=== PATIENT | male | born 1955 | race Caucasian/White ===

== ENCOUNTER → 2017-12-17 | Outpatient (CLI) | payer BC ==
[2017-12-17 15:49] LABS: Bilirubin, Delta 0.2 mg/dL (0.0-0.2); Bilirubin,Unconjugated 0.6 mg/dL (0.0-1.1); Total Bilirubin 0.8 mg/dL (0.2-1.3)
[2017-12-17 16:27] LABS: Phosphorus 3.9 mg/dL (2.5-4.5)
== END | disposition home or self-care (01) ==
LOC: LABWHC1 15:02
PROVIDERS: ATTEND Internal Medicine
DX: R74.8 Abnormal levels of other serum enzymes (principal)
CPT/HCPCS: 36415; 82248; 82550; 84075; 84100; 84460

== ENCOUNTER → 2018-02-09 | Outpatient (CLI) | payer BC | END | disposition home or self-care (01) | LOC: LABWHC1 11:16 | PROVIDERS: ATTEND Urology | DX: N40.1 Benign prostatic hyperplasia with lower urinary tract symptoms (principal) | CPT/HCPCS: 36415; 84153 ==

== ENCOUNTER → 2019-02-21 | Outpatient (CLI) | payer BC | END | disposition home or self-care (01) | LOC: LABWHC1 16:09 | PROVIDERS: ATTEND Urology | DX: N40.1 Benign prostatic hyperplasia with lower urinary tract symptoms (principal) | CPT/HCPCS: 36415; 84153; 84154 ==

== ENCOUNTER → 2020-02-21 | Outpatient (CLI) | payer MEDICARE, BC | END | disposition home or self-care (01) | LOC: LABWHC1 10:55 | PROVIDERS: ATTEND Urology | DX: N40.1 Benign prostatic hyperplasia with lower urinary tract symptoms (principal) | CPT/HCPCS: 36415; 84153; 84154 ==

== ENCOUNTER → 2020-05-22 | Outpatient (CLI) | payer MEDICARE ==
[2020-05-22 12:50] LABS: Basophils % (A) 1 %; Eosinophils # (A) 0.3 k/uL (0-0.7); Eosinophils % (A) 3 %; HCT 48.8 % (39.0-53.0); HGB 16.6 gm/dL (13.0-17.5); Lymphocytes # (A) 1.7 k/uL (1.0-4.8); Lymphocytes % (A) 18 %; MCH 28.9 pg (25.0-35.0); MCHC 33.9 g/dL (31.0-37.0); MCV 85.2 fL (80.0-100.0); Mean Platelet Volume 7.8; Monocytes # (A) 0.4 k/uL (0-1.0); Monocytes % (A) 4 %; Neutrophils # (A) 6.7 k/uL (1.3-7.7); Neutrophils % (A) 72 %; Platelet Count 186 k/uL (150-450); RBC 5.74 m/uL (4.30-5.90); RDW 13.9 % (11.5-15.5); WBC 9.3 k/uL (3.8-10.6)
[2020-05-22 20:45] LABS: Hemoglobin A1C 4.8 % (4.0-6.0)
[2020-05-22 22:17] LABS: African American GFR (CKD) 102.1 (60.0-200.0); Albumin 4.6 g/dL (3.80-4.90); Albumin/Globulin Ratio 2.09 (1.60-3.17); Anion Gap 5.4 mmol/L (4.00-12.00); BUN/Creat Ratio 17.78 Ratio (12.00-20.00); Calcium 9.8 mg/dL (8.7-10.3); Carbon Dioxide 29.6 mmol/L (21.6-31.8); Chol/HDL Ratio 2.88; Globulin 2.2 g/dL (1.6-3.3); Non-African American GFR(CKD) 88.1 (60.0-200.0); Potassium 4.4 mmol/L (3.5-5.5); Total Bilirubin 1.1 mg/dL (0.2-1.2); Total Protein 6.8 g/dL (6.2-8.2)
== END | disposition home or self-care (01) ==
LOC: LABWHC1 10:45
PROVIDERS: ATTEND Internal Medicine
DX: I10 Essential (primary) hypertension (principal); E78.00 Pure hypercholesterolemia, unspecified; E55.9 Vitamin D deficiency, unspecified; R63.4 Abnormal weight loss; Z79.899 Other long term (current) drug therapy
CPT/HCPCS: 36415; 80053; 80061; 82306; 83036; 84443; 85025

== ENCOUNTER 2021-03-15 14:59 | Inpatient (IN) | payer MEDICARE ==
[2021-03-15] MEDS ORDERED: SODIUM CHLORIDE 0.9% 1,000 ML IV STA (15:17)
--- NOTE | 2021-03-15 15:20 | ED ---
General Adult HPI - General Chief complaint: Neuro Symptoms/Deficit Stated complaint: Thick speech, loss of balance Poss stroke Time Seen by Provider: 03/15/21 15:17 Source: patient Mode of arrival: wheelchair Limitations: no limitations - History of Present Illness Initial comments: Dictation was produced using F[employer] dictation software. please excuse any grammatical, word or spelling errors. Chief Complaint: Patient is a 65-year-old male with past medical history of hypercholesterolemia and prostate disease presents to the emergency part of her strokelike symptoms. History of Present Illness: This 65-year-old male who is brought in by . Patient's last known normal was approximately 10:30 AM this morning. He was last normal on the way to the urologist. Patient went to the urology appointment when all of a sudden he experienced acute onset weakness. describes that they were at the local pharmacy in the parking lot. Patient wanted to going to the store however was too weak to do so. reports that patient's speech is "thick." States that he was unable to stand. Patient denies any issues at this time. reports that patient usually does not have much complaints. The ROS documented in this emergency department record has been reviewed and confirmed by me. Those systems with pertinent positive or negative responses have been documented in the HPI. All other systems are other negative and/or noncontributory. At the urologist appointment he was evaluated and was allegedly prescribed antibiotics. Patient has any constitutional symptoms. PHYSICAL EXAM: General Impression: Alert and oriented x3, not in acute distress HEENT: Normocephalic atraumatic, extra-ocular movements intact, pupils equal and reactive to light bilaterally, mucous membranes moist. Cardiovascular: Heart regular rate and rhythm Chest: Able to complete full sentences, no retractions, no tachypnea Abdomen: abdomen soft, non-tender, non-distended, no organomegaly Musculoskeletal: Pulses present and equal in all extremities, no peripheral edema Motor: no focal deficits noted Neurological: CN II-XII grossly intact, mildly aphasic, slightly slurred speech, ataxic to the left lower extremity, NIH of 3 for mild ataxia of the left lower extremity, mild aphasia and mild slurred speech. No sensory deficit. No ex tremity weakness Skin: Intact with no visualized rashes Psych: Normal affect and mood ED course: Patient is a 65-year-old male last known normal was 10:30 to 11 AM this morning. He has strokelike symptoms. Vital signs upon arrival shows him to 100.2, heart rate of 131, rest of vital signs within acceptable limits. Code stroke was paged. Patient has a NIH score of 3. Total onset was 10:30 to 11 AM this morning. Case is discussed with stroke neurologist Dr. Celeste who reports that patient is not a TPA candidate. Bedside ultrasound was performed. Fxnss-up-[id number] bladder ultrasound was performed after patient attempted urination. He is been having dribbling symptoms for the last couple days. He had a small amount of dribbled urine just prior to the ultrasound. Patient unable to urinate normally. Ultrasound shows approximately 200 mL of postvoid residual urine. CT angiography of the head and neck was discussed with Dr. Carlos. He recommends medical management at this time. Does not recommend neuro endovascular intervention. Multiple attempts were made to place Pierce catheter for urinary retention. Multiple coud sizes were attempted with no success. Silicone Pierce catheter was attempted with no success. Case discussed with Dr. Gustafson was adult probation officer for urology who is aware and will place Pierce catheter is concern that patient's clinical presentation reflects prostatitis. Patient started on Levaquin. Patient has no localizing symptoms. Vancomycin and also ordered for broad- spectrum coverage. Urinalysis was resulted showing signs of urinary tract infection. EKG interpretation: Ventricular rate 127, sinus tachycardia,. 170, QRS 86, QTC 427. No MA prolongation, no QTC prolongation, no ST or T-wave changes noted. Not EKG for comparison. Overall, this EKG is unremarkable - Related Data Home Medications Medication Instructions Recorded Confirmed Atorvastatin [Lipitor] 20 mg PO HS 03/15/21 03/15/21 Fish Oil 2500mg 1 cap PO DAILY 03/15/21 03/15/21 Losartan [Cozaar] 50 mg PO DAILY 03/15/21 03/15/21 Nitrofurantoin Monohyd/M-Cryst 100 mg PO BID 03/15/21 03/15/21 [Macrobid] Oxybutynin Chloride [Ditropan] 5 mg PO BID 03/15/21 03/15/21 Prevagen 1 cap PO DAILY 03/15/21 03/15/21 Tamsulosin [Flomax] 0.4 mg PO HS 03/15/21 03/15/21 amLODIPine [Norvasc] 5 mg PO DAILY 03/15/21 03/15/21 hydroCHLOROthiazide [Hydrodiuril] 12.5 mg PO DAILY 03/15/21 03/15/21 Allergies Allergy/AdvReac Type Severity Reaction Status Date / Time No Known Allergies Allergy Verified 03/15/21 16:19 Review of Systems ROS Statement: Those systems with pertinent positive or pertinent negative responses have been documented in the HPI. ROS Other: All systems not noted in ROS Statement are negative. Past Medical History Past Medical History: Hypertension Additional Past Medical History / Comment(s): prostate problems Additional Past Surgical History / Comment(s): prostate surgery, lithrotripsy Past Psychological History: No Psychological Hx Reported Smoking Status: Never smoker Past Alcohol Use History: None Reported Past Drug Use History: None Reported General Exam Limitations: no limitations Course Vital Signs 03/15/21 03/15/21 03/15/21 15:09 15:25 15:40 Temperature 100.2 F H Pulse Rate 131 H 130 H 133 H Respiratory 18 18 18 Rate Blood Pressure 163/88 147/78 161/94 O2 Sat by Pulse 94 L 95 94 L Oximetry 03/15/21 17:10 Temperature 102.5 F H Pulse Rate 128 H Respiratory 20 Rate Blood Pressure 138/81 O2 Sat by Pulse 94 L Oximetry Medical Decision Making - Lab Data Result diagrams: 03/15/21 15:23 03/15/21 15:23 Lab Results 03/15/21 03/15/21 03/15/21 Range/Units 15:21 15:23 15:23 WBC 11.9 H (3.8-10.6) k/uL RBC 5.21 (4.30-5.90) m/uL Hgb 15.7 (13.0-17.5) gm/dL Hct 43.4 (39.0-53.0) % MCV 83.3 (80.0-100.0) fL MCH 30.2 (25.0-35.0) pg MCHC 36.2 (31.0-37.0) g/dL RDW 14.0 (11.5-15.5) % Plt Count 159 (150-450) k/uL MPV 7.6 Neutrophils % 90 % Lymphocytes % 4 % Monocytes % 4 % Eosinophils % 0 % Basophils % 0 % Neutrophils # 10.8 H (1.3-7.7) k/uL Lymphocytes # 0.5 L (1.0-4.8) k/uL Monocytes # 0.5 (0-1.0) k/uL Eosinophils # 0.0 (0-0.7) k/uL Basophils # 0.0 (0-0.2) k/uL Hyperchromasia Slight Poikilocytosis Slight PT 11.1 (9.0-12.0) sec INR 1.1 (<1.2) APTT 24.8 (22.0-30.0) sec Sodium (137-145) mmol/L Potassium (3.5-5.1) mmol/L Chloride (98-107) mmol/L Carbon Dioxide (22-30) mmol/L Anion Gap mmol/L BUN (9-20) mg/dL Creatinine (0.66-1.25) mg/dL Est GFR (CKD-EPI)AfAm (>60 ml/min/1.73 sqM) Est GFR (CKD-EPI)NonAf (>60 ml/min/1.73 sqM) Glucose (74-99) mg/dL POC Glucose (mg/dL) 133 H (75-99) mg/dL POC Glu [employer] Generator ID Rashi, Sandra Plasma Lactic Acid Kurt (0.7-2.0) mmol/L Calcium (8.4-10.2) mg/dL Total Bilirubin (0.2-1.3) mg/dL AST (17-59) U/L ALT (4-49) U/L Alkaline Phosphatase (38-126) U/L Troponin I (0.000-0.034) ng/mL Total Protein (6.3-8.2) g/dL Albumin (3.5-5.0) g/dL Urine Color Urine Appearance (Clear) Urine pH (5.0-8.0) Ur Specific [place] (1.001-1.035) Urine Protein (Negative) Urine Glucose (UA) (Negative) Urine Ketones (Negative) Urine Blood (Negative) Urine Nitrite (Negative) Urine Bilirubin (Negative) Urine Urobilinogen (<2.0) mg/dL Ur Leukocyte Esterase (Negative) Urine RBC (0-5) /hpf Urine WBC (0-5) /hpf Ur Squamous Epith Cells (0-4) /hpf Hyaline Casts (0-2) /lpf Urine Mucus (None) /hpf Influenza Type A (PCR) (Not Detectd) Influenza Type B (PCR) (Not Detectd) RSV (PCR) (Not Detectd) SARS-CoV-2 (PCR) (Not Detectd) 03/15/21 03/15/21 03/15/21 Range/Units 15:23 15:23 15:23 WBC (3.8-10.6) k/uL RBC (4.30-5.90) m/uL Hgb (13.0-17.5) gm/dL Hct (39.0-53.0) % MCV (80.0-100.0) fL MCH (25.0-35.0) pg MCHC (31.0-37.0) g/dL RDW (11.5-15.5) % Plt Count (150-450) k/uL MPV Neutrophils % % Lymphocytes % % Monocytes % % Eosinophils % % Basophils % % Neutrophils # (1.3-7.7) k/uL Lymphocytes # (1.0-4.8) k/uL Monocytes # (0-1.0) k/uL Eosinophils # (0-0.7) k/uL Basophils # (0-0.2) k/uL Hyperchromasia Poikilocytosis PT (9.0-12.0) sec INR (<1.2) APTT (22.0-30.0) sec Sodium 134 L (137-145) mmol/L Potassium 3.9 (3.5-5.1) mmol/L Chloride 99 (98-107) mmol/L Carbon Dioxide 22 (22-30) mmol/L Anion Gap 13 mmol/L BUN 19 (9-20) mg/dL Creatinine 0.81 (0.66-1.25) mg/dL Est GFR (CKD-EPI)AfAm >90 (>60 ml/min/1.73 sqM) Est GFR (CKD-EPI)NonAf >90 (>60 ml/min/1.73 sqM) Glucose 133 H (74-99) mg/dL POC Glucose (mg/dL) (75-99) mg/dL POC Glu Gleason [employer] Generator ID Plasma Lactic Acid Kurt (0.7-2.0) mmol/L Calcium 9.2 (8.4-10.2) mg/dL Total Bilirubin 1.9 H (0.2-1.3) mg/dL AST 22 (17-59) U/L ALT 19 (4-49) U/L Alkaline Phosphatase 73 (38-126) U/L Troponin I <0.012 (0.000-0.034) ng/mL Total Protein 7.4 (6.3-8.2) g/dL Albumin 4.2 (3.5-5.0) g/dL Urine Color Yellow Urine Appearance Cloudy (Clear) Urine pH 5.5 (5.0-8.0) Ur Specific [place] >1.050 H (1.001-1.035) Urine Protein 2+ H (Negative) Urine Glucose (UA) Negative (Negative) Urine Ketones 1+ H (Negative) Urine Blood Large H (Negative) Urine Nitrite Negative (Negative) Urine Bilirubin Negative (Negative) Urine Urobilinogen <2.0 (<2.0) mg/dL Ur Leukocyte Esterase Large H (Negative) Urine RBC >182 H (0-5) /hpf Urine WBC 154 H (0-5) /hpf Ur Squamous Epith Cells 2 (0-4) /hpf Hyaline Casts 5 H (0-2) /lpf Urine Mucus Rare H (None) /hpf Influenza Type A (PCR) (Not Detectd) Influenza Type B (PCR) (Not Detectd) RSV (PCR) (Not Detectd) SARS-CoV-2 (PCR) (Not Detectd) 03/15/21 03/15/21 Range/Units 15:23 15:23 WBC (3.8-10.6) k/uL RBC (4.30-5.90) m/uL Hgb (13.0-17.5) gm/dL Hct (39.0-53.0) % MCV (80.0-100.0) fL MCH (25.0-35.0) pg MCHC (31.0-37.0) g/dL RDW (11.5-15.5) % Plt Count (150-450) k/uL MPV Neutrophils % % Lymphocytes % % Monocytes % % Eosinophils % % Basophils % % Neutrophils # (1.3-7.7) k/uL Lymphocytes # (1.0-4.8) k/uL Monocytes # (0-1.0) k/uL Eosinophils # (0-0.7) k/uL Basophils # (0-0.2) k/uL Hyperchromasia Poikilocytosis PT (9.0-12.0) sec INR (<1.2) APTT (22.0-30.0) sec Sodium (137-145) mmol/L Potassium (3.5-5.1) mmol/L Chloride (98-107) mmol/L Carbon Dioxide (22-30) mmol/L Anion Gap mmol/L BUN (9-20) mg/dL Creatinine (0.66-1.25) mg/dL Est GFR (CKD-EPI)AfAm (>60 ml/min/1.73 sqM) Est GFR (CKD-EPI)NonAf (>60 ml/min/1.73 sqM) Glucose (74-99) mg/dL POC Glucose (mg/dL) (75-99) mg/dL POC Glu Gleason [employer] Generator ID Plasma Lactic Acid Kurt 1.7 (0.7-2.0) mmol/L Calcium (8.4-10.2) mg/dL Total Bilirubin (0.2-1.3) mg/dL AST (17-59) U/L ALT (4-49) U/L Alkaline Phosphatase (38-126) U/L Troponin I (0.000-0.034) ng/mL Total Protein (6.3-8.2) g/dL Albumin (3.5-5.0) g/dL Urine Color Urine Appearance (Clear) Urine pH (5.0-8.0) Ur Specific [place] (1.001-1.035) Urine Protein (Negative) Urine Glucose (UA) (Negative) Urine Ketones (Negative) Urine Blood (Negative) Urine Nitrite (Negative) Urine Bilirubin (Negative) Urine Urobilinogen (<2.0) mg/dL Ur Leukocyte Esterase (Negative) Urine RBC (0-5) /hpf Urine WBC (0-5) /hpf Ur Squamous Epith Cells (0-4) /hpf Hyaline Casts (0-2) /lpf Urine Mucus (None) /hpf Influenza Type A (PCR) Not Detected (Not Detectd) Influenza Type B (PCR) Not Detected (Not Detectd) RSV (PCR) Not Detected (Not Detectd) SARS-CoV-2 (PCR) Not Detected (Not Detectd) Critical Care Time Critical Care Time: Yes Total Critical Care Time: 33 Disposition Clinical Impression: Cerebrovascular accident (CVA), UTI (urinary tract infection), Urinary retention Disposition: ADMITTED IP TO THIS HOSP Condition: Fair Referrals: David Agrawal DO [Primary Care Provider] - 1-2 days
[2021-03-15 15:23] LABS: Glucose,Whole Blood 133 mg/dL (75-99)
[2021-03-15 15:48] LABS: ALT 19 U/L (4-49); AST 22 U/L (17-59); African American GFR (CKD) >90 (>60 ml/min/1.73 sqM); Albumin 4.2 g/dL (3.5-5.0); Alkaline Phosphatase 73 U/L (38-126); Anion Gap 13 mmol/L; Blood Urea Nitrogen 19 mg/dL (9-20); Calcium 9.2 mg/dL (8.4-10.2); Carbon Dioxide 22 mmol/L (22-30); Chloride 99 mmol/L (98-107); Glucose 133 mg/dL (74-99); Non-African American GFR(CKD) >90 (>60 ml/min/1.73 sqM); Potassium 3.9 mmol/L (3.5-5.1); Sodium 134 mmol/L (137-145); Total Bilirubin 1.9 mg/dL (0.2-1.3); Total Protein 7.4 g/dL (6.3-8.2)
[2021-03-15 15:51] LABS: INR 1.1 (<1.2); Partial Thromboplastin Time 24.8 sec (22.0-30.0); Prothrombin Time 11.1 sec (9.0-12.0)
[2021-03-15 15:52] LABS: Basophils % (A) 0 %; Eosinophils % (A) 0 %; HCT 43.4 % (39.0-53.0); HGB 15.7 gm/dL (13.0-17.5); Hyperchromasia Slight; Lymphocytes # (A) 0.5 k/uL (1.0-4.8); Lymphocytes % (A) 4 %; MCH 30.2 pg (25.0-35.0); MCHC 36.2 g/dL (31.0-37.0); MCV 83.3 fL (80.0-100.0); Mean Platelet Volume 7.6; Monocytes # (A) 0.5 k/uL (0-1.0); Monocytes % (A) 4 %; Neutrophils # (A) 10.8 k/uL (1.3-7.7); Neutrophils % (A) 90 %; Platelet Count 159 k/uL (150-450); Poikilocytosis Slight; RBC 5.21 m/uL (4.30-5.90); WBC 11.9 k/uL (3.8-10.6)
--- NOTE | 2021-03-15 16:03 | CT ---
EXAMINATION TYPE: CT brain wo con for TPA DATE OF EXAM: 03/15/2021 COMPARISON: None HISTORY: 65-year-old male bilateral leg weakness, dysphasia, loss of balance TECHNIQUE: Examination was done in axial plane without intravenous contrast. Coronal and sagittal r econstructions performed. CT DLP: 1111 mGycm Automated exposure control for dose reduction was used. FINDINGS: There is no evidence of acute intracranial hemorrhage, acute ischemic changes, mass, mass-effect, or extra-axial fluid collection. There is no effacement of cerebral sulci or basal subarachnoid cister ns. There is no hydrocephalus. There is no midline shift. Gonsales-white matter distinction is preserv ed. Atherosclerotic calcifications within the bilateral carotid siphons. Hypoplastic V4 segment right laura tebral artery. Mild white matter hypodensities in both cervical hemispheres. Mild mucosal thickening maxillary sinuses and ethmoid air cells. Large caliber to the left greater th an right superior ophthalmic veins Dilated IMPRESSION: 1. Dilated superior ophthalmic veins, left greater than right. The etiology is unclear. Consider vivien rect carotid cavernous fistula or venous varix. Neurosurgical referral for further evaluation such as with conventional angiography can be considered. 2. Otherwise, no acute intracranial abnormality seen.
--- NOTE | 2021-03-15 16:33 | CT ---
EXAMINATION TYPE: CT angio head neck DATE OF EXAM: 03/15/2021 COMPARISON: CT brain same day HISTORY: 65-year-old male bilateral leg weakness, dysphasia, loss of balance TECHNIQUE: Contiguous axial scanning of the head and neck performed with IV Contrast, patient injecte d with 65 mL of Isovue 370. Coronal/sagittal MIP reconstructions performed. 3-D reconstructions gener ated on a dedicated workstation. CT DLP: 635.3 mGycm Automated exposure control for dose reduction was used. FINDINGS: NECK: There is conventional origin is a branching anatomy. Motion and beam hardening artifact limits assessment of the origins of the bilateral vertebral arteri es. Otherwise, the vertebral arteries are patent. V4 segment right vertebral artery becomes hypoplast ic. The right common carotid artery is patent. Mild atherosclerotic calcifications in the right carotid bulb without any significant narrowing. Left common carotid artery is patent. Left internal carotid artery is patent. NASCET criteria was utilized. HEAD: Hypoplastic V4 segment right vertebral artery. The vertebral and basilar arteries are otherwise paten t. The posterior circulation also appears patent. Moderate atherosclerotic narrowing distal cavernous segment left internal carotid artery. Otherwise, scattered mild atherosclerotic narrowing bilateral carotid siphons The remainder of the anterior circulation is patent. No aneurysmal changes identified. There is some early enhancement within the superior ophthalmic veins indicating patency. IMPRESSION: 1. NECK: VERY MILD ATHEROSCLEROTIC CHANGE AT THE BIFURCATIONS. NO HEMODYNAMICALLY SIGNIFICANT ICA DOMINGO NOSIS ON EITHER SIDE. 2. HEAD: FOCAL MODERATE ATHEROSCLEROTIC STENOSIS DISTAL CAVERNOUS SEGMENT LEFT ICA. OTHERWISE, NO LAR GE VESSEL INTRACRANIAL ARTERIAL OCCLUSION, SIGNIFICANT STENOSIS, OR ANEURYSMAL CHANGE IS SEEN.
[2021-03-15] MEDS ORDERED: ACETAMINOPHEN TAB 500 MG TAB PO STA (17:10)
[2021-03-15] MEDS ORDERED: cefTRIAXone IN SWFI 1,000 MG/10 ML SYRINGE IVP STA (17:34)
[2021-03-15] MEDS ORDERED: LEVOFLOXACIN 500MG-D5W PMX 500 MG in DEXTROSE/WATER 1 100ML.BAG IVPB STA (17:38)
--- NOTE | 2021-03-15 17:51 | XR ---
EXAMINATION TYPE: XR chest 2V DATE OF EXAM: 03/15/2021 COMPARISON: NONE HISTORY: Altered mental status TECHNIQUE: Frontal and lateral views of the chest are obtained. FINDINGS: Low lung volumes with crowding at the opal. There is no focal air space opacity, pleural e ffusion, or pneumothorax seen. The cardiac silhouette size is within normal limits. The osseous st ructures are intact. IMPRESSION: No acute cardiopulmonary process.
[2021-03-15 18:32] LABS: Appearance,Urine Cloudy (Clear); Bilirubin,Urine Negative (Negative); Blood,Urine Large (Negative); Color,Urine Yellow; Glucose,Urine (UA) Negative (Negative); Hyaline Casts,Urine 5 /lpf (0-2); Ketones,Urine 1+ (Negative); Leukocyte Esterase,Urine Large (Negative); Mucus,Urine Rare /hpf; Nitrite,Urine Negative (Negative); PH, Urine 5.5 (5.0-8.0); Protein,Urine 2+ (Negative); RBC,Urine >182 /hpf (0-5); Squamous Epithelial Cell,Urine 2 /hpf (0-4); Urobilinogen,Urine <2.0 mg/dL (<2.0); WBC,Urine 154 /hpf (0-5)
[2021-03-15] MEDS ORDERED: VANCOMYCIN IV PER PHARMACY 1 EACH MISC MISCELLANE PRN (18:40)
[2021-03-15 18:49] LABS: Specific Gravity,Urine >1.050 (1.001-1.035)
[2021-03-15] MEDS ORDERED: NALOXONE 0.4 MG/ML 1 ML VIAL IV PRN (18:49)
[2021-03-15] MEDS ORDERED: ONDANSETRON 4 MG/2 ML VIAL IVP PRN (18:49)
[2021-03-15] MEDS ORDERED: ACETAMINOPHEN TAB 325 MG TAB PO PRN (18:49)
[2021-03-15] MEDS ORDERED: VANCOMYCIN 1,750 MG in SODIUM CHLORIDE 0.9% 500 ML 500 ML IVPB ONE (19:00)
[2021-03-15] MEDS ORDERED: SODIUM CHLORIDE 0.9% 1,000 ML IV SCH (19:00)
--- NOTE | 2021-03-15 20:18 | P.GSCN ---
History of Present Illness Consult date: 03/15/21 History of present illness: 65 yo male from [place] via [facility]. developed a neurolgical event and came to the er. He was seeing his urologist in [facility] today, /dr Yee. He was told he had a uti. Ab were prescribed but he didnt get them because the neurological event came first. I was asked to see because of incomplete voiding and the uti. The patient had a greenlight laser turp by Dr Yee 7 years ago. PEr the patient today he is to have another turp He has been having a hard time emptying his bladder. He has had incontinence recently due to the uti.The patient has been febrile. Review of Systems All systems: negative - Constitutional Denies fever, Denies weight loss - EENT Eyes: denies blurred vision Ears, nose, mouth and throat: Denies dysphagia - Cardiovascular Denies chest pain, Denies shortness of breath - Respiratory Denies cough, Denies 7 - Gastrointestinal Reports as per HPI - Genitourinary Denies dysuria, Denies hematuria - Integumentary Denies rash, Denies unusual bruising - Neurological Denies headaches, Denies syncope - Hematologic/Lymphatic Denies easy bleeding, Denies easy bruising Past Medical History Past Medical History: Hypertension Additional Past Medical History / Comment(s): prostate problems Additional Past Surgical History / Comment(s): prostate surgery, lithrotripsy Past Psychological History: No Psychological Hx Reported Smoking Status: Never smoker Past Alcohol Use History: None Reported Past Drug Use History: None Reported Medications and Allergies Home Medications Medication Instructions Recorded Confirmed Type Atorvastatin [Lipitor] 20 mg PO HS 03/15/21 03/15/21 History Fish Oil 2500mg 1 cap PO DAILY 03/15/21 03/15/21 History Losartan [Cozaar] 50 mg PO DAILY 03/15/21 03/15/21 History Nitrofurantoin Monohyd/M-Cryst 100 mg PO BID 03/15/21 03/15/21 History [Macrobid] Oxybutynin Chloride [Ditropan] 5 mg PO BID 03/15/21 03/15/21 History Prevagen 1 cap PO DAILY 03/15/21 03/15/21 History Tamsulosin [Flomax] 0.4 mg PO HS 03/15/21 03/15/21 History amLODIPine [Norvasc] 5 mg PO DAILY 03/15/21 03/15/21 History hydroCHLOROthiazide [Hydrodiuril] 12.5 mg PO DAILY 03/15/21 03/15/21 History Allergies Allergy/AdvReac Type Severity Reaction Status Date / Time No Known Allergies Allergy Verified 03/15/21 16:19 Surgical - Exam Vital Signs Temp Pulse Resp BP Pulse Ox 100.2 F H 131 H 18 163/88 94 L 03/15/21 15:09 03/15/21 15:09 03/15/21 15:09 03/15/21 15:09 03/15/21 15:09 - General mild distress. well developed, well nourished - ENT no hearing loss - Neck trachea midline - Respiratory normal expansion, normal respiratory effort - Cardiovascular Rhythm: regular - Abdomen Abdomen: soft, non tender - Genitourinary normal penis with no external lesions, testicles present - Neurologic normal coordination, normal sensation - Musculoskeletal normal posture - Psychiatric oriented to time, oriented to person, oriented to place, speech is normal, memory intact Results - Labs 03/15/21 15:23 03/15/21 15:23 Abnormal Lab Results - Last 24 Hours (Table) 03/15/21 03/15/21 03/15/21 Range/Units 15:21 15:23 15:23 WBC 11.9 H (3.8-10.6) k/uL Neutrophils # 10.8 H (1.3-7.7) k/uL Lymphocytes # 0.5 L (1.0-4.8) k/uL Sodium 134 L (137-145) mmol/L Glucose 133 H (74-99) mg/dL POC Glucose (mg/dL) 133 H (75-99) mg/dL Total Bilirubin 1.9 H (0.2-1.3) mg/dL Ur Specific [place] (1.001-1.035) Urine Protein (Negative) Urine Ketones (Negative) Urine Blood (Negative) Ur Leukocyte Esterase (Negative) Urine RBC (0-5) /hpf Urine WBC (0-5) /hpf Hyaline Casts (0-2) /lpf Urine Mucus (None) /hpf 03/15/21 Range/Units 15:23 WBC (3.8-10.6) k/uL Neutrophils # (1.3-7.7) k/uL Lymphocytes # (1.0-4.8) k/uL Sodium (137-145) mmol/L Glucose (74-99) mg/dL POC Glucose (mg/dL) (75-99) mg/dL Total Bilirubin (0.2-1.3) mg/dL Ur Specific [place] >1.050 H (1.001-1.035) Urine Protein 2+ H (Negative) Urine Ketones 1+ H (Negative) Urine Blood Large H (Negative) Ur Leukocyte Esterase Large H (Negative) Urine RBC >182 H (0-5) /hpf Urine WBC 154 H (0-5) /hpf Hyaline Casts 5 H (0-2) /lpf Urine Mucus Rare H (None) /hpf Diabetes panel 03/15/21 Range/Units 15:23 Sodium 134 L (137-145) mmol/L Potassium 3.9 (3.5-5.1) mmol/L Chloride 99 (98-107) mmol/L Carbon Dioxide 22 (22-30) mmol/L BUN 19 (9-20) mg/dL Creatinine 0.81 (0.66-1.25) mg/dL Glucose 133 H (74-99) mg/dL Calcium 9.2 (8.4-10.2) mg/dL AST 22 (17-59) U/L ALT 19 (4-49) U/L Alkaline Phosphatase 73 (38-126) U/L Total Protein 7.4 (6.3-8.2) g/dL Albumin 4.2 (3.5-5.0) g/dL Calcium panel 03/15/21 Range/Units 15:23 Calcium 9.2 (8.4-10.2) mg/dL Albumin 4.2 (3.5-5.0) g/dL Pituitary panel 03/15/21 Range/Units 15:23 Sodium 134 L (137-145) mmol/L Potassium 3.9 (3.5-5.1) mmol/L Chloride 99 (98-107) mmol/L Carbon Dioxide 22 (22-30) mmol/L BUN 19 (9-20) mg/dL Creatinine 0.81 (0.66-1.25) mg/dL Glucose 133 H (74-99) mg/dL Calcium 9.2 (8.4-10.2) mg/dL Adrenal panel 03/15/21 Range/Units 15:23 Sodium 134 L (137-145) mmol/L Potassium 3.9 (3.5-5.1) mmol/L Chloride 99 (98-107) mmol/L Carbon Dioxide 22 (22-30) mmol/L BUN 19 (9-20) mg/dL Creatinine 0.81 (0.66-1.25) mg/dL Glucose 133 H (74-99) mg/dL Calcium 9.2 (8.4-10.2) mg/dL Total Bilirubin 1.9 H (0.2-1.3) mg/dL AST 22 (17-59) U/L ALT 19 (4-49) U/L Alkaline Phosphatase 73 (38-126) U/L Total Protein 7.4 (6.3-8.2) g/dL Albumin 4.2 (3.5-5.0) g/dL Assessment and Plan Assessment: Impression: Neuro event . uti. recurrent bph with incomplete voiding. Plan: cultures, antibiotics, catheter. neurological assessment. Time with Patient: Greater than 30
--- NOTE | 2021-03-15 20:24 | P.PCN ---
Date of Procedure: 03/15/21 Preoperative Diagnosis: urine retention, inability of nursing staff to pass a catheter. Postoperative Diagnosis: same secondary to bph and bulbar urethral edema. Procedure(s) Performed: cystoscopy with difficult catheter placement. Anesthesia: none Surgeon: Sarthak Gustafson Estimated Blood Loss (ml): 0 Indications for Procedure: urine retention, bph, inability of nursing staff to place a catheter. Description of Procedure: The patient is prepped and draped sterilely. I attempted to pass a 16 fr coude tip catheter but met resistance in the prostatic urethra. I then passed the flexible cystoscope into the urethra the anteriro urethra was normal until the proximal bulb where there is alot of edema. I hug the anterior uethral wall and pass into a prostate with alot of regrowth of tissye. the prostate is long and obstructing. the bladder is entered. I then pass and 035 glide wire throught the scope into the bladder. I remove the cystoscope and over the wire pass a 16 fr coude tip cath where I cut the end off. the baloon is insufflated and about 300 ml of brown urine is drained. the catheter should remain in place for now.
--- NOTE | 2021-03-15 21:36 | HP ---
HISTORY AND PHYSICAL DATE OF SERVICE: 03/15/2021 CHIEF COMPLAINTS: Loss of balance, slurring of speech and weakness. HISTORY OF PRESENT ILLNESS: This 65-year-old gentleman with a past medical history of multiple medical problems, including hypertension, history of prostate disorder, being followed by Dr. Agrawal in the outpatient setting, was apparently being evaluated by a urologist elsewhere, and the patient also was evaluated for infection, but the patient after getting out of the urologist's office, found a taxicab and had difficulty in walking and some difficulty in talking, and the patient was taken to [facility] and was admitted for further evaluation and treatment. The patient also had some fever and a chill- like feeling. There is no fever, rigor or chills at this time. After admission, white count was found to be 11.9 and UA was also found to be infected with some RBCs. Influenza and COVID-19 negative. Neurology evaluation in progress. CT brain was requested which showed dilated superior ophthalmic veins. Cavernous fistula is a possibility. No acute intracranial abnormality was noted. PAST MEDICAL HISTORY: History of hypertension, history of benign prostatic hypertrophy. MEDICATIONS: HydroDIURIL, Norvasc, Flomax, Prevagen, Ditropan, Macrobid, Cozaar and Lipitor. Doses are reviewed. ALLERGIES: NONE. FAMILY HISTORY: No history of heart disease or strokes in the family. SOCIAL HISTORY: No history of smoking. No history of alcohol intake. REVIEW OF SYSTEMS: ENT: As mentioned earlier. CARDIOVASCULAR SYSTEM: No angina, palpitations. RESPIRATORY SYSTEM: No cough, hemoptysis. GI: As mentioned earlier. : No dysuria. NERVOUS SYSTEM: No numbness, weakness. ALLERGY/IMMUNOLOGY: No asthma or hay fever. MUSCULOSKELETAL: As mentioned earlier. HEMATOLOGY/ONCOLOGY: No history of anemia. ENDOCRINE: No history of diabetes or hypothyroidism. CONSTITUTIONAL: As mentioned earlier. DERMATOLOGY: Negative. RHEUMATOLOGY: Negative. PSYCHIATRY: As mentioned earlier. NEUROLOGY: As mentioned earlier. PHYSICAL EXAMINATION: Patient alert and oriented x3. Pulse is 128, blood pressure 138/81, respiration 20, temperature 102.5, pulse ox 94% on room air. HEENT: Conjunctivae normal. Oral mucosa moist. NECK: No jugular venous distention. No carotid bruit. No lymph node enlargement. CARDIOVASCULAR: S1, S2 muffled. No S3. No S4. RESPIRATION: Breath sounds diminished at the bases. A few rhonchi. No crackles. ABDOMEN: Soft, nontender. No mass palpable. LEGS: No edema. No swelling. NERVOUS SYSTEM: Higher functions as mentioned earlier. Cranial nerves 2 through 12 grossly intact. Otherwise, power is normal. Finger-nose incoordination on the left side present. Reflexes are diminished. Gait not tested. LYMPHATICS: No lymph node palpable in neck, axillae or groin. SKIN: No ulcer, rash, bleeding. JOINTS: No active deforming arthropathy. LABS: WBC 11.9. Sodium npotassium 3.9. Other labs are noted. ASSESSMENT: 1. Weakness on the left side and incoordination with gait dysfunction; possible acute stroke. 2. Possible acute urinary tract infection with sepsis, present on admission. 3. History of benign prostatic hypertrophy. 4. Hyponatremia. 5. Increased white count. 6. Increased random blood sugar. 7. History of hypertension. 8. History of lithotripsy. 9. Dilated superior ophthalmic veins, left greater than right, on the CT scan, of undetermined significance. 10.FULL CODE. RECOMMENDATIONS AND DISCUSSION: In this 65-year-old gentleman who presented with multiple complex medical issues, as listed, at this time I recommend to continue the current medications, continue symptomatic treatment. I would recommend neurology consultation, stroke workup and empiric antibiotics for UTI. Otherwise, cultures. Infectious disease evaluation for possible sepsis. Urology has been consulted. Prognosis is guarded because of multiple complex medical issues. Further recommendations to follow. Will initiate home medication. Discussed with the patient, who understands and agrees. MMODL / IJN: [id number] / RICHY
[2021-03-16] MEDS: HEPARIN SODIUM,PORCINE/PF 5,000 UNIT/0.5 ML SYRINGE SQ SCH ×3 (00:31→19:54)
[2021-03-16] MEDS: ATORVASTATIN 20 MG TAB PO SCH ×2 (01:13→19:54)
[2021-03-16] MEDS: TAMSULOSIN 0.4 MG CAP.ER.24H PO SCH ×2 (01:46→19:54)
[2021-03-16] MEDS: ASPIRIN 81 MG PO SCH ×2 (01:46→08:59)
[2021-03-16] MEDS: OXYBUTYNIN CHLORIDE 5 MG TAB PO SCH ×3 (01:55→19:54)
[2021-03-16] MEDS: ACETAMINOPHEN TAB 325 MG TAB PO PRN ×4 (04:04→22:36)
[2021-03-16] MEDS ORDERED: IBUPROFEN 600 MG TAB PO STA (04:27)
[2021-03-16] MEDS ORDERED: IPRATROPIUM-ALBUTEROL 3 ML NEB INHALATION STA (04:33)
[2021-03-16] MEDS ORDERED: SODIUM CHLORIDE 0.9% 500 ML 500 ML IV ONE (04:39)
[2021-03-16 05:04] LABS: African American GFR (CKD) >90 (>60 ml/min/1.73 sqM); Anion Gap 10 mmol/L; Blood Urea Nitrogen 19 mg/dL (9-20); Calcium 7.8 mg/dL (8.4-10.2); Carbon Dioxide 21 mmol/L (22-30); Chloride 103 mmol/L (98-107); Glucose 126 mg/dL (74-99); Non-African American GFR(CKD) >90 (>60 ml/min/1.73 sqM); Potassium 3.4 mmol/L (3.5-5.1); Sodium 134 mmol/L (137-145)
[2021-03-16] MEDS: SODIUM CHLORIDE 0.9% 1,000 ML IV SCH ×3 (05:04→23:20)
--- NOTE | 2021-03-16 05:06 | XR ---
EXAMINATION TYPE: XR KUB portable DATE OF EXAM: 03/16/2021 COMPARISON: NONE HISTORY: Vomiting bile TECHNIQUE: 2 views supine FINDINGS: There are some distended gas and fluid-filled small bowel loops in the mid abdomen. Fecal p attern is fairly normal. I see no sign of free air. IMPRESSION: Distended small bowel suggestive of ileus.
[2021-03-16 05:28] LABS: Basophils % (A) 0 %; Eosinophils % (A) 0 %; HCT 39.4 % (39.0-53.0); HGB 13.9 gm/dL (13.0-17.5); Hyperchromasia Slight; Lymphocytes # (A) 0.4 k/uL (1.0-4.8); Lymphocytes % (A) 7 %; MCHC 35.3 g/dL (31.0-37.0); MCV 82.1 fL (80.0-100.0); Mean Platelet Volume 7.7; Monocytes # (A) 0.2 k/uL (0-1.0); Monocytes % (A) 3 %; Neutrophils # (A) 5.3 k/uL (1.3-7.7); Neutrophils % (A) 89 %; Platelet Count 136 k/uL (150-450); Poikilocytosis Slight; RDW 14.2 % (11.5-15.5)
[2021-03-16] MEDS ORDERED: PANTOPRAZOLE 40 MG/10 ML VIAL IV SCH (09:00)
[2021-03-16] MEDS ORDERED: cefTRIAXone 1,000 MG VIAL (IM USE) IM SCH (09:00)
[2021-03-16] MEDS ORDERED: NON FORMULARY DRUG (Prevagen 1 CAP) PO SCH (09:00)
[2021-03-16] MEDS ORDERED: VANCOMYCIN 1,750 MG in SODIUM CHLORIDE 0.9% 500 ML 500 ML IVPB SCH (09:00)
[2021-03-16] MEDS: hydroCHLOROthiazide 12.5 MG CAP PO SCH (12:12)
[2021-03-16] MEDS: amLODIPine 5 MG TAB PO SCH (12:12)
[2021-03-16] MEDS: LOSARTAN 50 MG TAB PO SCH (12:12)
[2021-03-16] MEDS ORDERED: Potassium Replacement Protocol 1 EACH MISC MISCELLANE PRN (12:44)
[2021-03-16 12:55] LABS: Chol/HDL Ratio 2.95 Ratio; LDL Cholesterol,Calculated 42.3 mg/dL (0.0-131.0)
[2021-03-16] MEDS: POTASSIUM CHLORIDE ER 20 MEQ TAB.ER PO SCH ×2 (13:56→15:49)
[2021-03-16] MEDS ORDERED: CEFEPIME 2 GM in SODIUM CHLORIDE 0.9% 100 ML IVPB SCH (16:00)
--- NOTE | 2021-03-16 16:09 | P.CNNES ---
History of Present Illness Consult date: 03/16/21 History of Present Illness: The patient is a 65-year-old male who is seen in neurologic consultation on March 16, 2021, via teleneurology. The patient is being seen because of concerns regarding stroke. The patient himself has difficulty providing history for me. He says that he had traveled to see his urologist and apparently on the way home, he had some difficulties. The patient himself reports that he was told that he was incoherent and "losing it". He says he vaguely remembers this. He reports not recalling yesterday evening. He says that today he has been fine. He does not really recall coming into the hospital. He does note that he had a headache yesterday. He denies changes in vision and neck pain. He denies weakness in his upper extremities. He denies weakness in his lower extremities. He denies difficulty swallowing. He says that he ate some lunch today but had not eaten anything since (today is Thursday). The patient reports that he was not feeling well and had no appetite. He reportedly had been drinking fluids. In review the history and physical and emergency department notes, the patient reportedly had an episode of slurred speech and left leg weakness. CT scan of the brain was negative for acute hemorrhage and infarct. According to the patient's nurse, the patient had another episode of slurred speech last p.m. when his temperature was 100.5. Patient has positive blood cultures. Past Medical History Past Medical History: Hypertension Additional Past Medical History / Comment(s): prostate problems History of Any Multi-Drug Resistant Organisms: None Reported Additional Past Surgical History / Comment(s): prostate surgery, lithrotripsy Past Anesthesia/Blood Transfusion Reactions: No Reported Reaction Past Psychological History: No Psychological Hx Reported Smoking Status: Never smoker Past Alcohol Use History: None Reported Additional Past Alcohol Use History / Comment(s): drinks occassionally. Past Drug Use History: None Reported - Past Family History Mother Family Medical History: Congestive Heart Failure (CHF) Father Additional Family Medical History / Comment(s): esophageal ca Medications and Allergies Home Medications Medication Instructions Recorded Confirmed Type Atorvastatin [Lipitor] 20 mg PO HS 03/15/21 03/15/21 History Fish Oil 2500mg 1 cap PO DAILY 03/15/21 03/15/21 History Losartan [Cozaar] 50 mg PO DAILY 03/15/21 03/15/21 History Nitrofurantoin Monohyd/M-Cryst 100 mg PO BID 03/15/21 03/15/21 History [Macrobid] Oxybutynin Chloride [Ditropan] 5 mg PO BID 03/15/21 03/15/21 History Prevagen 1 cap PO DAILY 03/15/21 03/15/21 History Tamsulosin [Flomax] 0.4 mg PO HS 03/15/21 03/15/21 History amLODIPine [Norvasc] 5 mg PO DAILY 03/15/21 03/15/21 History hydroCHLOROthiazide [Hydrodiuril] 12.5 mg PO DAILY 03/15/21 03/15/21 History Allergies Allergy/AdvReac Type Severity Reaction Status Date / Time No Known Allergies Allergy Verified 03/15/21 16:19 Physical Examination - Vital Signs Vital Signs: Vital Signs Temp Pulse Pulse Resp BP BP Pulse Ox 03/16/21 13:40 89 18 03/16/21 11:45 89 18 105/64 96 03/16/21 08:50 97.3 F L 108 H 18 105/67 97 03/16/21 06:56 98.3 F 03/16/21 05:44 99.4 F 124 H 20 117/63 95 03/16/21 04:55 135 H 95 03/16/21 04:54 100.5 F H 03/16/21 04:00 99.8 F H 143 H 30 H 113/67 96 03/16/21 02:24 98.2 F 03/16/21 01:43 99.2 F 120 H 20 148/78 96 03/16/21 01:40 108 H 18 167/79 95 03/15/21 19:15 99.9 F H 108 H 18 123/73 94 L 03/15/21 17:10 102.5 F H 128 H 20 138/81 94 L 03/15/21 15:40 133 H 18 161/94 94 L 03/15/21 15:25 130 H 18 147/78 95 03/15/21 15:09 100.2 F H 131 H 18 163/88 94 L Intake and Output 10/08/21 10/09/21 10/09/21 22:59 06:59 14:59 Intake Total 120 Output Total 500 150 Balance -500 -30 Intake: Oral 120 Output: Urine 500 150 Other: Voiding Method Indwelling Catheter Indwelling Catheter Weight 111.13 kg 110.5 kg Gen.: The patient is reclining in the bed. He is well-nourished, well-developed and in no acute distress. HEENT: Head is atraumatic, normocephalic. Fundus not visualized. There is no scleral icterus. Mucous membranes are moist. Neck: Supple without carotid bruits Heart: Regular rate and rhythm Lungs: Clear to auscultation Extremities: Without edema Neurological examination Mental status: The patient is awake and alert. He is oriented to his name, date of , age, current year, current date and location. His speech is clear. There is no a anomia. There is no right/left confusion. Cranial nerves: Pupils are equal at 2 mm and reactive. Visual frey are full to confrontation. Extraocular movements are intact. There is no nystagmus. Facial sensation is intact. There is no facial asymmetry. Hearing is grossly intact. Uvula and palate are midline. Shoulder shrug is symmetric. Tongue protrudes midline. Motor: Strength is 5/5 throughout. Coordination: There is no pronator drift. Finger to nose and rapid alternating movements are intact. Sensation: Intact to light touch throughout. There is no extinction with double simultaneous stimulation. Deep tendon reflexes: 2+/4+ throughout Results - Laboratory Findings CBC and BMP: 03/16/21 04:40 03/16/21 04:40 Abnormal Lab Findings: Abnormal Labs 03/15/21 03/15/21 03/15/21 15:21 15:23 15:23 WBC 11.9 H Plt Count Neutrophils # 10.8 H Lymphocytes # 0.5 L Sodium 134 L Potassium Carbon Dioxide Glucose 133 H POC Glucose (mg/dL) 133 H Calcium Total Bilirubin 1.9 H HDL Cholesterol Ur Specific [place] Urine Protein Urine Ketones Urine Blood Ur Leukocyte Esterase Urine RBC Urine WBC Hyaline Casts Urine Mucus 03/15/21 03/16/21 03/16/21 15:23 04:40 04:40 WBC Plt Count 136 L Neutrophils # Lymphocytes # 0.4 L Sodium 134 L Potassium 3.4 L Carbon Dioxide 21 L Glucose 126 H POC Glucose (mg/dL) Calcium 7.8 L Total Bilirubin HDL Cholesterol 27.80 L Ur Specific [place] >1.050 H Urine Protein 2+ H Urine Ketones 1+ H Urine Blood Large H Ur Leukocyte Esterase Large H Urine RBC >182 H Urine WBC 154 H Hyaline Casts 5 H Urine Mucus Rare H Assessment and Plan Assessment: 1. Mental status changes and weakness, likely secondary to bacteremia/urinary tract infection 2. Current neurological examination reveals no focal or lateralizing deficits Plan: 1. Stroke order set was attempted to be initiated however in light of the patient's normal neurological examination and infection/bacteremia, I do not believe stroke orders are needed at this time 2. Your medical treatment of patient's infection Thank you for allowing me to participate in the care of this patient Time with Patient: Greater than 30 (spent 40 minutes with patient via telemedicine)
--- NOTE | 2021-03-16 21:29 | PN ---
PROGRESS NOTE DATE OF SERVICE: 03/16/2021 This 65-year-old gentleman admitted with features of weakness of the left side and possible acute stroke also had UTI with sepsis. The patient had a CT of the brain and angiography that showed some dilated superior ophthalmic veins. Neurology consultation by . Recommendation was continue to monitor. No chest pain. No palpitations. No fever. PHYSICAL EXAMINATION: Alert and oriented x3. Pulse 93, blood pressure 102/68, respiration 18, temperature 97.4, pulse ox 94% on 2 L. HEENT: Conjunctivae normal. NECK: No jugular venous distention. CARDIOVASCULAR: S1, S2 muffled. RESPIRATION: Breath sounds diminished at the bases. A few scattered rhonchi. ABDOMEN: Soft. LEGS: No edema. No swelling. NERVOUS SYSTEM: No focal deficit. LABS: WBC 6, hemoglobin 13.9. Sodium 132, potassium 3.4. ASSESSMENT: 1. Weakness on the left side as well as incoordination with gait dysfunction; possible acute stroke. 2. Escherichia coli sepsis. 3. Possible acute urinary tract infection with sepsis, present on admission. 4. History of benign prostatic hypertrophy. 5. Hyponatremia. 6. Increased white count. 7. Increased random blood glucose. 8. History of hypertension. 9. History of lithotripsy. 10.Dilated superior ophthalmic veins, left greater than right, on CT scan, of undetermined significance. 11.FULL CODE. RECOMMENDATIONS AND DISCUSSION: I recommend to continue current medications, continue with symptomatic treatment. Repeat labs. Continue with the antibiotics. Cultures are showing E coli from the blood cultures. Also recommend infectious disease evaluation. Patient is on Rocephin at this time. Further recommendations to follow. MMODL / IJN: [id number] / MTDD
[2021-03-17] MEDS: PANTOPRAZOLE 40 MG TABLET PO SCH (05:07)
[2021-03-17] MEDS: ACETAMINOPHEN TAB 325 MG TAB PO PRN ×4 (05:07→23:11)
[2021-03-17] MEDS: SODIUM CHLORIDE 0.9% 1,000 ML IV SCH ×3 (05:42→20:04)
[2021-03-17] MEDS: HEPARIN SODIUM,PORCINE/PF 5,000 UNIT/0.5 ML SYRINGE SQ SCH ×2 (09:43→20:03)
[2021-03-17] MEDS: OXYBUTYNIN CHLORIDE 5 MG TAB PO SCH ×2 (09:43→20:03)
[2021-03-17] MEDS: ASPIRIN 81 MG PO SCH (09:43)
[2021-03-17] MEDS: amLODIPine 5 MG TAB PO SCH (09:44)
[2021-03-17] MEDS: hydroCHLOROthiazide 12.5 MG CAP PO SCH (09:44)
--- NOTE | 2021-03-17 10:48 | P.CONS ---
History of Present Illness - Reason for Consult Consult date: 03/16/21 sepsis/UTI Requesting physician: Rupal Dwyer - Chief Complaint weakness x 1 day - History of Present Illness History of present illness : Patient is 65-year-old male with a past medical history significant for bladder outlet obstruction incomplete emptying of the bladder tract presented to the hospital with sudden experience of weakness patient speech was supposed to be thick and unable to strain with the center the patient has been brought to the hospital concern for possible CVA on arrival to the ER patient did have a fever of 102.5 F patient was tachycardic did have white count of 11.9 kidney function was normal urine was significantly positive patient has been admitted to hospital for stroke work-up he was started on Rocephin and subsequently blood culture came positive with gram-negative bacilli vancomycin was added and infectious disease was consulted for further management of antibiotic therapy. Patient main symptom is to be feeling weak an d tired he did have a difficulty starting the stream did have some burning of urine but no suprapubic or flank pain some nausea but no vomiting no chest pain shortness of breath or cough and no diarrhea Review of system: CONSTITUTIONAL: Positive for weakness along with the fever. EYES: No complaint. ENT: No complaint. RESPIRATORY: No complaint. CARDIOVASCULAR: No complaint. GENITOURINARY as per history of present illness. GASTROINTESTINAL: No complaint. MUSCULOSKELETAL: No complaint. INTEGUMENTARY: No complaint. PSYCHOLOGIC: No complaint. ENDOCRINE: No complaint. NEUROLOGIC: No complaint. Past medical history : Reviewed, documented below Past surgical history : Reviewed, documented below Social history: Reviewed, documented below Medications: Reviewed, as documented below EXAMINATION: Vital sigans= Reviewed and documented below GENERAL DESCRIPTION: Elderly male lying in bed, no distress. No tachypnea or accessory muscle of respiration use. HEENT: Shows Pallor , no scleral icterus. Oral mucous membrane is dry. NECK: Trachea central, no thyromegaly. LUNGS: Unlabored breathing. Clear to auscultation anteriorly. No wheeze or crackle. HEART: S1, S2, regular rate and rhythm. ABDOMEN: Soft, no tenderness , guarding or rigidity EXTREMITIES: No edema of feet. SKIN: No rash, no masses palpable. NEUROLOGICAL: The patient is awake, alert, oriented x3, mood and affect normal. LABS AND RADIOLOGY: Reviewed results see below Assessment : Patient presented to hospital with sepsis in this patient who did have fever elevated white count tachycardia significantly positive UA with urinary symptoms likely urinary source for this episode of sepsis Plan: 1-discontinue Rocephin and vancomycin 2-cefepime 2 g every 8 hour 3-gentle IV fluid We will follow on clinical condition and cultures to further adjust medication if needed Thank you for this consultation we will follow the patient along with you Past Medical History Past Medical History: Hypertension Additional Past Medical History / Comment(s): prostate problems History of Any Multi-Drug Resistant Organisms: None Reported Additional Past Surgical History / Comment(s): prostate surgery, lithrotripsy Past Anesthesia/Blood Transfusion Reactions: No Reported Reaction Past Psychological History: No Psychological Hx Reported Smoking Status: Never smoker Past Alcohol Use History: None Reported Additional Past Alcohol Use History / Comment(s): drinks occassionally. Past Drug Use History: None Reported - Past Family History Mother Family Medical History: Congestive Heart Failure (CHF) Father Additional Family Medical History / Comment(s): esophageal ca Medications and Allergies Home Medications Medication Instructions Recorded Confirmed Type Atorvastatin [Lipitor] 20 mg PO HS 03/15/21 03/15/21 History Fish Oil 2500mg 1 cap PO DAILY 03/15/21 03/15/21 History Losartan [Cozaar] 50 mg PO DAILY 03/15/21 03/15/21 History Nitrofurantoin Monohyd/M-Cryst 100 mg PO BID 03/15/21 03/15/21 History [Macrobid] Oxybutynin Chloride [Ditropan] 5 mg PO BID 03/15/21 03/15/21 History Prevagen 1 cap PO DAILY 03/15/21 03/15/21 History Tamsulosin [Flomax] 0.4 mg PO HS 03/15/21 03/15/21 History amLODIPine [Norvasc] 5 mg PO DAILY 03/15/21 03/15/21 History hydroCHLOROthiazide [Hydrodiuril] 12.5 mg PO DAILY 03/15/21 03/15/21 History Allergies Allergy/AdvReac Type Severity Reaction Status Date / Time No Known Allergies Allergy Verified 03/15/21 16:19 Physical Exam Vitals: Vital Signs Temp Pulse Pulse Resp BP BP Pulse Ox 03/16/21 11:45 89 18 105/64 96 03/16/21 08:50 97.3 F L 108 H 18 105/67 97 10/09/21 06:56 98.3 F 03/16/21 05:44 99.4 F 124 H 20 117/63 95 03/16/21 04:55 135 H 95 03/16/21 04:54 100.5 F H 03/16/21 04:00 99.8 F H 143 H 30 H 113/67 96 03/16/21 02:24 98.2 F 03/16/21 01:43 99.2 F 120 H 20 148/78 96 03/16/21 01:40 108 H 18 167/79 95 03/15/21 19:15 99.9 F H 108 H 18 123/73 94 L 03/15/21 17:10 102.5 F H 128 H 20 138/81 94 L 03/15/21 15:40 133 H 18 161/94 94 L 03/15/21 15:25 130 H 18 147/78 95 03/15/21 15:09 100.2 F H 131 H 18 163/88 94 L Intake and Output 03/15/21 03/16/21 03/16/21 22:59 06:59 14:59 Intake Total 0 Output Total 500 Balance -500 0 Intake: Oral 0 Output: Urine 500 Other: Voiding Method Indwelling Catheter Indwelling Catheter Weight 111.13 kg 110.5 kg Results CBC & Chem 7: 03/16/21 04:40 03/16/21 04:40 Labs: Abnormal Lab Results - Last 24 Hours (Table) 03/15/21 03/15/21 03/15/21 Range/Units 15:21 15:23 15:23 WBC 11.9 H (3.8-10.6) k/uL Plt Count (150-450) k/uL Neutrophils # 10.8 H (1.3-7.7) k/uL Lymphocytes # 0.5 L (1.0-4.8) k/uL Sodium 134 L (137-145) mmol/L Potassium (3.5-5.1) mmol/L Carbon Dioxide (22-30) mmol/L Glucose 133 H (74-99) mg/dL POC Glucose (mg/dL) 133 H (75-99) mg/dL Calcium (8.4-10.2) mg/dL Total Bilirubin 1.9 H (0.2-1.3) mg/dL Ur Specific [place] (1.001-1.035) Urine Protein (Negative) Urine Ketones (Negative) Urine Blood (Negative) Ur Leukocyte Esterase (Negative) Urine RBC (0-5) /hpf Urine WBC (0-5) /hpf Hyaline Casts (0-2) /lpf Urine Mucus (None) /hpf 03/15/21 03/16/21 03/16/21 Range/Units 15:23 04:40 04:40 WBC (3.8-10.6) k/uL Plt Count 136 L (150-450) k/uL Neutrophils # (1.3-7.7) k/uL Lymphocytes # 0.4 L (1.0-4.8) k/uL Sodium 134 L (137-145) mmol/L Potassium 3.4 L (3.5-5.1) mmol/L Carbon Dioxide 21 L (22-30) mmol/L Glucose 126 H (74-99) mg/dL POC Glucose (mg/dL) (75-99) mg/dL Calcium 7.8 L (8.4-10.2) mg/dL Total Bilirubin (0.2-1.3) mg/dL Ur Specific [place] >1.050 H (1.001-1.035) Urine Protein 2+ H (Negative) Urine Ketones 1+ H (Negative) Urine Blood Large H (Negative) Ur Leukocyte Esterase Large H (Negative) Urine RBC >182 H (0-5) /hpf Urine WBC 154 H (0-5) /hpf Hyaline Casts 5 H (0-2) /lpf Urine Mucus Rare H (None) /hpf Microbiology - Last 24 Hours (Table) 03/15/21 17:20 Blood Culture - Final Blood 03/15/21 19:19 Blood Culture - Final Blood 03/15/21 15:23 Urine Culture - Preliminary Urine,Voided
[2021-03-17] MEDS: LOSARTAN 50 MG TAB PO SCH (11:49)
[2021-03-17] MEDS: ATORVASTATIN 20 MG TAB PO SCH (20:03)
[2021-03-17] MEDS: TAMSULOSIN 0.4 MG CAP.ER.24H PO SCH (20:03)
--- NOTE | 2021-03-17 20:36 | PN ---
PROGRESS NOTE DATE OF SERVICE: 03/17/2021 This 65-year-old gentleman who was admitted with weakness of the left side as well as some incoordination and gait dysfunction, possibly had an acute stroke. The patient also had E coli sepsis. The patient is closely monitored. Neurology has seen the patient yesterday. No chest pain. No palpitations. No fever. PHYSICAL EXAMINATION: Alert and oriented x2. Pulse is 100. Blood pressure is 140/80. Respiration 18. Temperature 99 degrees, T-max 100.6, pulse ox 93% on 2 L. HEENT: Conjunctivae normal. Neck: No JVD. Cardiovascular: S1, S2 muffled. Respirations: Breath sounds diminished in the bases. A few scattered rhonchi. Abdomen: Soft. Nontender. Nervous system: No focal deficits. LABS: WBC 6, platelets 130. Sodium 130, potassium 3.4 and blood cultures showed E coli and urine cultures shows gram negative bacilli. ASSESSMENT: 1. Acute urinary tract infection with possible sepsis, present on admission with possibly coli. 2. Escherichia coli, sepsis from the blood. 3. Weakness of the left side and incoordination with gait dysfunction, possible acute stroke or transient ischemic attack, present on admission. 4. History of benign prostatic hypertrophy. 5. Hyponatremia. 6. Increased WBC. 7. Increased random blood sugar. 8. History of hypertension. 9. History lithotripsy. 10.Dilated in the CT scan of undetermined significance. 11.FULL CODE. RECOMMENDATIONS AND DISCUSSION: Continue current medications, and symptomatic treatment. Otherwise closely monitor. Continue the antibiotics. I would also repeat cultures. Most recent cultures on March 15 is positive. Continue to monitor. Guarded prognosis. Further recommendations to follow. MMODL / IJN: [id number] / [facility] HOSPITALJuan
[2021-03-18] MEDS: DILTIAZEM 125 MG in SODIUM CHLORIDE 0.9% 100 ML IV SCH (02:32)
--- NOTE | 2021-03-18 02:44 | PN ---
PROGRESS NOTE DATE OF SERVICE: 03/17/2021. REASON FOR FOLLOWUP: E coli bacteremia secondary to urinary source. INTERVAL HISTORY: Patient is afebrile. The patient is more awake and alert. He is breathing comfortably on room air. Denies having any chest pain, shortness of breath or cough. No abdominal pain. No diarrhea. PHYSICAL EXAMINATION: Blood pressure 132/75 with pulse 100. Temperature 99.2. He is 95% on room air. General description is an elderly male lying in bed in no distress. Respiratory system: Unlabored breathing, clear to auscultation anteriorly. Heart S1, S2. Regular rate and rhythm. Abdomen soft, no tenderness. LABS: No new labs have been obtained today. DIAGNOSTIC IMPRESSION AND PLAN: Patient with E coli bacteremia secondary to urinary source and this patient did have underlying BPH and urinary outflow obstruction. Did have a Pierce catheter placed. Patient is covered with Rocephin to continue while waiting for the sensitivity to finalize to determine his discharge antibiotics. at the bedside. Multiple questions, those were answered. MMODL / IJN: [id number] /
[2021-03-18] MEDS: PANTOPRAZOLE 40 MG TABLET PO SCH (06:13)
[2021-03-18] MEDS: SODIUM CHLORIDE 0.9% 1,000 ML IV SCH ×3 (06:13→19:49)
[2021-03-18] MEDS ORDERED: HEPARIN SODIUM 1,000 UN/ML (10ML VL) IV ONE (07:57)
[2021-03-18] MEDS: METOPROLOL TARTRATE 25 MG TAB PO SCH ×2 (08:06→19:49)
[2021-03-18] MEDS: ASPIRIN 81 MG PO SCH (08:06)
[2021-03-18] MEDS: HEPARIN SOD,PORK IN 0.45% NACL 25,000 UNIT in 0.45% NACL 1 250ML.BAG IV SCH (08:07)
[2021-03-18] MEDS: OXYBUTYNIN CHLORIDE 5 MG TAB PO SCH ×2 (08:07→19:49)
[2021-03-18 08:53] LABS: Basophils % (A) 0 %; Eosinophils # (A) 0.1 k/uL (0-0.7); Eosinophils % (A) 1 %; HCT 38.8 % (39.0-53.0); HGB 13.2 gm/dL (13.0-17.5); Lymphocytes # (A) 0.8 k/uL (1.0-4.8); Lymphocytes % (A) 10 %; MCH 29.2 pg (25.0-35.0); MCHC 34.1 g/dL (31.0-37.0); MCV 85.6 fL (80.0-100.0); Mean Platelet Volume 8.9; Monocytes # (A) 0.5 k/uL (0-1.0); Monocytes % (A) 6 %; Neutrophils # (A) 6.9 k/uL (1.3-7.7); Neutrophils % (A) 80 %; Platelet Count 133 k/uL (150-450); Poikilocytosis Slight; RBC 4.54 m/uL (4.30-5.90); RDW 13.9 % (11.5-15.5); WBC 8.7 k/uL (3.8-10.6)
[2021-03-18 09:06] LABS: African American GFR (CKD) >90 (>60 ml/min/1.73 sqM); Anion Gap 8 mmol/L; Blood Urea Nitrogen 16 mg/dL (9-20); Calcium 8.2 mg/dL (8.4-10.2); Carbon Dioxide 21 mmol/L (22-30); Chloride 109 mmol/L (98-107); Glucose 112 mg/dL (74-99); Non-African American GFR(CKD) >90 (>60 ml/min/1.73 sqM); Potassium 3.6 mmol/L (3.5-5.1); Sodium 138 mmol/L (137-145)
[2021-03-18 09:14] LABS: Basophils % (A) 0 %; Eosinophils # (A) 0.1 k/uL (0-0.7); Eosinophils % (A) 1 %; HCT 38.5 % (39.0-53.0); HGB 12.9 gm/dL (13.0-17.5); INR 1.1 (<1.2); Lymphocytes # (A) 0.7 k/uL (1.0-4.8); Lymphocytes % (A) 9 %; MCH 28.8 pg (25.0-35.0); MCHC 33.5 g/dL (31.0-37.0); MCV 85.9 fL (80.0-100.0); Mean Platelet Volume 8.6; Monocytes # (A) 0.3 k/uL (0-1.0); Monocytes % (A) 4 %; Neutrophils # (A) 6.6 k/uL (1.3-7.7); Neutrophils % (A) 83 %; Partial Thromboplastin Time 70.1 sec (22.0-30.0); Platelet Count 132 k/uL (150-450); Poikilocytosis Slight; Prothrombin Time 11.7 sec (9.0-12.0); RBC 4.49 m/uL (4.30-5.90); RDW 13.9 % (11.5-15.5); WBC 7.9 k/uL (3.8-10.6)
[2021-03-18] MEDS ORDERED: POTASSIUM CHLORIDE ER 20 MEQ TAB.ER PO SCH (11:00)
[2021-03-18] MEDS: hydroCHLOROthiazide 12.5 MG CAP PO SCH (12:01)
[2021-03-18] MEDS: LOSARTAN 50 MG TAB PO SCH (12:01)
--- NOTE | 2021-03-18 12:26 | P.CRDCN ---
History of Present Illness Consult date: 03/18/21 History of present illness: HISTORY OF PRESENT ILLNESS: This is a 65-year-old male with a past medical history significant for hypertension and hyperlipidemia. 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 We have been asked to see the patient in consultation for A. fib with RVR. Patient examined at the bedside. Patient's is at the bedside and provides additional history. Patient's states they were leaving a urology appointment when her seem to be exhibiting strokelike symptoms according to her. She states the patient had slurred speech and was confused. She also reports he was argumentative which is unlike him. She brought him to the hospital for further evaluation. Patient was found to be febrile and tachycardi c. Patient was found to have a urinary tract infection and his blood cultures are positive for E. coli. Patient went into A. fib with RVR. Patient denies a history of atrial fibrillation. At the time of my examination, patient remains in atrial fibrillation with a heart rate in the 110-120s. Cardizem drip is infusing at 5 mg an hour. He denies chest pain or pressure. He denies shortness of breath. He does report having some palpitations earlier this morning. Patient's also reports that the patient is supposed to have a TURP with Dr. Yee in the near future. EKG reveals A. fib with RVR Chest xray negative for acute process Laboratory data: WBC 7.9. Hemoglobin 12.9. Platelet count 132. Sodium 138. Potassium 3.6. BUN 16. Creatinine 0.67. Current home cardiac medications include hydrochlorothiazide 12.5 mg daily, amlodipine 5 mg daily, losartan 59 g daily, and Lipitor 20 mg daily REVIEW OF SYSTEMS: At the time of my exam: CONSTITUTIONAL: Denies fever or chills. HEENT: Denies blurred vision, vision changes, or eye pain. Denies hemoptysis CARDIOVASCULAR: Denies chest pain. Denies orthopnea. Denies PND. Denies palpitations RESPIRATORY: Denies shortness of breath. GASTROINTESTINAL: Denies abdominal pain. Denies nausea or vomiting. HEMATOLOGIC: Denies bleeding disorders. GENITOURINARY: Denies any blood in urine. SKIN: Denies pruitis. Denies rash. PHYSICAL EXAM: VITAL SIGNS: Reviewed. GENERAL: Well-developed in no acute distress. HEENT: Head is normocephalic. Pupils are equal, round. Sclerae anicteric. Mucous membranes of the mouth are moist. Neck supple. No JVD or thyromegaly LUNGS: Respirations even and unlabored. Lungs essentially clear to auscultation bilaterally. HEART: Tachycardic. Irregular rate and rhythm. S1 and S2 heard. ABDOMEN: Soft. Nondistended. Nontender. EXTREMITIES: Normal range of motion. No clubbing or cyanosis. Peripheral pulses intact. No lower extremity edema NEUROLOGIC: Awake and alert. Oriented x 3. ASSESSMENT: Urinary tract infection Sepsis New-onset atrial fibrillation with RVR Hypertension Hyperlipidemia PLAN: Obtain 2-D echo to assess cardiac structure and function Wean Cardizem drip as tolerated Discontinue amlodipine Begin metoprolol 25 mg twice a day Check TSH Begin IV heparin infusion. Case management consulted to verify coverage of oral anticoagulation Further recommendations pending patient's course Nurse practitioner note has been reviewed by physician. Signing provider agrees with the documented findings, assessment, and plan of care. Past Medical History Past Medical History: Hypertension Additional Past Medical History / Comment(s): prostate problems History of Any Multi-Drug Resistant Organisms: None Reported Additional Past Surgical History / Comment(s): prostate surgery, lithrotripsy Past Anesthesia/Blood Transfusion Reactions: No Reported Reaction Past Psychological History: No Psychological Hx Reported Smoking Status: Never smoker Past Alcohol Use History: None Reported Additional Past Alcohol Use History / Comment(s): drinks occassionally. Past Drug Use History: None Reported - Past Family History Mother Family Medical History: Congestive Heart Failure (CHF) Father Additional Family Medical History / Comment(s): esophageal ca Medications and Allergies Home Medications Medication Instructions Recorded Confirmed Type Atorvastatin [Lipitor] 20 mg PO HS 03/15/21 03/15/21 History Fish Oil 2500mg 1 cap PO DAILY 03/15/21 03/15/21 History Losartan [Cozaar] 50 mg PO DAILY 03/15/21 03/15/21 History Nitrofurantoin Monohyd/M-Cryst 100 mg PO BID 03/15/21 03/15/21 History [Macrobid] Oxybutynin Chloride [Ditropan] 5 mg PO BID 03/15/21 03/15/21 History Prevagen 1 cap PO DAILY 03/15/21 03/15/21 History Tamsulosin [Flomax] 0.4 mg PO HS 03/15/21 03/15/21 History amLODIPine [Norvasc] 5 mg PO DAILY 03/15/21 03/15/21 History hydroCHLOROthiazide [Hydrodiuril] 12.5 mg PO DAILY 03/15/21 03/15/21 History Allergies Allergy/AdvReac Type Severity Reaction Status Date / Time No Known Allergies Allergy Verified 03/15/21 16:19 Physical Exam Vitals: Vital Signs Temp Pulse Resp BP Pulse Ox 03/18/21 07:45 98.2 F 130 H 18 121/70 95 03/18/21 02:26 98.0 F 130 H 16 118/67 93 L 03/18/21 00:10 114 H 17 03/17/21 23:14 100.3 F H 114 H 17 148/83 93 L 03/17/21 19:52 99.2 F 100 16 132/75 95 03/17/21 16:29 99 F 100 18 140/88 93 L 03/17/21 14:20 111 H 18 03/17/21 11:47 100.6 F H 111 H 18 159/89 95 03/17/21 09:22 99.5 F 109 H 18 137/80 95 03/17/21 09:20 111 H 18 Intake and Output 03/17/21 03/18/21 03/18/21 22:59 06:59 14:59 Intake Total 150 410 Output Total 1825 1350 Balance -8502 -94 Intake: Intake, IV Titration 50 Amount cefTRIAXone 2 gm In 50 Sodium Chloride 0.9% 50 ml @ 100 mls/hr IVPB Q24HR [facility] Rx#:[id number] Oral 150 360 Output: Urine 1825 1350 Other: Voiding Method Indwelling Catheter Indwelling Catheter # Bowel Movements 1 Weight 113.8 kg Results 03/18/21 08:34 03/18/21 07:40 Current Medications Generic Name Dose Route Start Last Admin Trade Name Freq PRN Reason Stop Dose Admin Acetaminophen 650 mg 03/16/21 03:58 03/17/21 23:11 Acetaminophen Tab 325 Mg Tab PO 650 mg Q4HR PRN Administration Mild Pain or Fever > 100.5 Aspirin 81 mg 03/15/21 21:00 03/18/21 08:06 Aspirin 81 Mg PO 81 mg DAILY [facility] Administration Atorvastatin Calcium 20 mg 03/15/21 21:00 03/17/21 20:03 Atorvastatin 20 Mg Tab PO 20 mg HS [facility] Administration Heparin Sodium (Porcine) 0 unit 03/18/21 07:57 Heparin Sodium 1,000 Un/Ml (10ml Vl) IV PER PROTOCOL PRN Low PTT Protocol Hydrochlorothiazide 12.5 mg 03/16/21 09:00 03/17/21 09:44 Hydrochlorothiazide 12.5 Mg Cap PO Not Given DAILY [facility] Sodium Chloride 1,000 mls @ 125 mls/hr 03/16/21 04:45 03/18/21 06:13 Saline 0.9% IV 125 mls/hr .Q8H [facility] Administration Ceftriaxone Sodium 2 gm/ 50 mls @ 100 mls/hr 03/17/21 09:00 03/18/21 08:06 Sodium Chloride IVPB 100 mls/hr Q24HR [facility] Administration Diltiazem HCl 125 mg/ Sodium 125 mls @ 5 mls/hr 03/18/21 02:30 03/18/21 02:32 Chloride IV 5 mg/hr .Q24H [facility] 5 mls/hr Administration 5 MG/HR Heparin Sodium/Sodium Chloride 250 mls @ 10.003 mls/hr 03/18/21 08:00 03/18/21 08:07 25,000 unit/ Sodium Chloride IV 8.79 units/kg/hr .Q24H [facility] 10.003 mls/hr Administration Protocol 8.79 UNITS/KG/HR Losartan Potassium 50 mg 03/16/21 09:00 03/17/21 11:49 Losartan 50 Mg Tab PO 50 mg DAILY [facility] Administration Metoprolol Tartrate 25 mg 03/18/21 09:00 03/18/21 08:06 Metoprolol Tartrate 25 Mg Tab PO 25 mg BID [facility] Administration Miscellaneous Information 1 each 03/16/21 12:44 Potassium Replacement Protocol 1 Each Misc MISCELLANE DAILY PRN Per Protocol Protocol Naloxone HCl 0.2 mg 03/15/21 18:49 Naloxone 0.4 Mg/Ml 1 Ml Vial IV Q2M PRN Opioid Reversal Ondansetron HCl 4 mg 03/15/21 18:49 03/16/21 04:24 Ondansetron 4 Mg/2 Ml Vial IVP 4 mg Q8HR PRN Administration Nausea And Vomiting Oxybutynin Chloride 5 mg 03/15/21 21:00 03/18/21 08:07 Oxybutynin Chloride 5 Mg Tab PO 5 mg BID [facility] Administration Pantoprazole Sodium 40 mg 03/17/21 07:30 03/18/21 06:13 Pantoprazole 40 Mg Tablet PO 40 mg [id number] [facility] Administration Tamsulosin HCl 0.4 mg 03/15/21 21:00 03/17/21 20:03 Tamsulosin 0.4 Mg Cap.Er.24h PO 0.4 mg HS [facility] Administration Intake and Output 03/17/21 03/18/21 03/18/21 22:59 06:59 14:59 Intake Total 150 410 Output Total 1825 1350 Balance -5179 -367 Intake: Intake, IV Titration 50 Amount cefTRIAXone 2 gm In 50 Sodium Chloride 0.9% 50 ml @ 100 mls/hr IVPB Q24HR [facility] Rx#:[id number] Oral 150 360 Output: Urine 1825 1350 Other: Voiding Method Indwelling Catheter Indwelling Catheter # Bowel Movements 1 Weight 113.8 kg 03/16/21 04:40 03/16/21 04:40
[2021-03-18] MEDS: HEPARIN SODIUM 1,000 UN/ML (10ML VL) IV PRN ×2 (15:30→22:31)
--- NOTE | 2021-03-18 18:29 | PN ---
PROGRESS NOTE DATE OF SERVICE: 03/18/2021 This 65-year-old gentleman who was admitted with acute UTI with possible sepsis also had E coli grown from the blood. The most recent cultures on 03/15 are growing E coli. No chest pain. No palpitations. No fever. Complains of generalized weakness. PHYSICAL EXAMINATION: Alert and oriented x3. Pulse 96, blood pressure 125/74, respirations 16, temperature 98.2, pulse ox 96% on room air. HEENT: Conjunctivae normal. NECK: No jugular venous distention. CARDIOVASCULAR: S1, S2 muffled. RESPIRATION: Breath sounds diminished at the bases. A few scattered rhonchi. ABDOMEN: Soft. NERVOUS SYSTEM: Diffusely weak. LABS: Hemoglobin 12.9. APTT noted. TSH is 2.800. UA noted. Cultures are noted. ASSESSMENT: 1. Acute urinary tract infection with possible sepsis, present on admission, with possibly Escherichia coli. 2. Escherichia coli sepsis in the blood. 3. Weakness of the left side as well as incoordination with gait dysfunction and possible acute stroke or transient ischemic attack, present on admission. 4. History of benign prostatic hypertrophy. 5. Hyponatremia. 6. Increased white count. 7. Increased random blood sugar. 8. History of hypertension. 9. History of lithotripsy. 10.Dilated superior ophthalmic veins on the CT scan of undetermined significance. RECOMMENDATIONS AND DISCUSSION: I recommend to continue current medications, continue with symptomatic treatment. Continue with the antibiotics. PT/OT evaluation. Increase ambulation. Repeat labs. I would also recommend repeat blood cultures. Guarded prognosis. Further recommendations to follow. MMODL / IJN: [id number] /
--- NOTE | 2021-03-18 18:38 | PN ---
PROGRESS NOTE PROGRESS NOTE ADDENDUM: DATE OF SERVICE: 03/18/2021 This 65-year-old gentleman admitted with UTI as well as possible stroke also developed atrial fibrillation with a fast ventricular rate. The patient has been started on Cardizem drip at this time. Patient was transferred to the cardiac unit. The TSH is normal and cultures are as mentioned earlier. Continue the Cardizem drip. Cardiology is following the patient closely. Also recommend a 2D echo with Doppler. Further recommendations to follow. RIGOBERTO / ALANNAN: [id number] /
[2021-03-18] MEDS: ATORVASTATIN 20 MG TAB PO SCH (19:49)
[2021-03-18] MEDS: TAMSULOSIN 0.4 MG CAP.ER.24H PO SCH (19:49)
[2021-03-19] MEDS: HEPARIN SOD,PORK IN 0.45% NACL 25,000 UNIT in 0.45% NACL 1 250ML.BAG IV SCH ×2 (00:55→07:55)
[2021-03-19] MEDS: SODIUM CHLORIDE 0.9% 1,000 ML IV SCH ×2 (04:52→08:07)
[2021-03-19] MEDS: ACETAMINOPHEN TAB 325 MG TAB PO PRN ×2 (05:47→15:56)
[2021-03-19] MEDS: PANTOPRAZOLE 40 MG TABLET PO SCH (05:48)
[2021-03-19] MEDS: DILTIAZEM 125 MG in SODIUM CHLORIDE 0.9% 100 ML IV SCH (07:55)
[2021-03-19] MEDS: ASPIRIN 81 MG PO SCH (07:57)
[2021-03-19] MEDS: hydroCHLOROthiazide 12.5 MG CAP PO SCH (07:57)
[2021-03-19] MEDS: LOSARTAN 50 MG TAB PO SCH (07:57)
[2021-03-19] MEDS: METOPROLOL TARTRATE 25 MG TAB PO SCH (07:57)
[2021-03-19] MEDS: OXYBUTYNIN CHLORIDE 5 MG TAB PO SCH ×2 (07:58→20:03)
[2021-03-19] MEDS ORDERED: METOPROLOL TARTRATE 25 MG TAB PO ONE (08:45)
[2021-03-19 09:21] LABS: Basophils % (A) 0 %; Eosinophils # (A) 0.3 k/uL (0-0.7); Eosinophils % (A) 3 %; HCT 38.9 % (39.0-53.0); HGB 12.9 gm/dL (13.0-17.5); Lymphocytes # (A) 1.3 k/uL (1.0-4.8); Lymphocytes % (A) 14 %; MCH 28.6 pg (25.0-35.0); MCHC 33.2 g/dL (31.0-37.0); MCV 86.2 fL (80.0-100.0); Mean Platelet Volume 8.3; Monocytes # (A) 0.4 k/uL (0-1.0); Monocytes % (A) 4 %; Neutrophils # (A) 7.2 k/uL (1.3-7.7); Neutrophils % (A) 76 %; Platelet Count 156 k/uL (150-450); Poikilocytosis Slight; RBC 4.51 m/uL (4.30-5.90); WBC 9.5 k/uL (3.8-10.6)
[2021-03-19 09:51] LABS: Partial Thromboplastin Time 36.9 sec (22.0-30.0); Prothrombin Time 10.6 sec (9.0-12.0)
[2021-03-19 10:14] LABS: African American GFR (CKD) >90 (>60 ml/min/1.73 sqM); Anion Gap 7 mmol/L; Blood Urea Nitrogen 12 mg/dL (9-20); Calcium 8.3 mg/dL (8.4-10.2); Carbon Dioxide 26 mmol/L (22-30); Chloride 107 mmol/L (98-107); Glucose 134 mg/dL (74-99); Non-African American GFR(CKD) >90 (>60 ml/min/1.73 sqM); Potassium 3.2 mmol/L (3.5-5.1); Sodium 140 mmol/L (137-145)
[2021-03-19] MEDS: APIXABAN 5 MG TAB PO SCH ×2 (11:17→20:03)
[2021-03-19] MEDS: POTASSIUM CHLORIDE ER 20 MEQ TAB.ER PO SCH ×2 (11:17→11:18)
--- NOTE | 2021-03-19 11:23 | P.PN ---
Subjective Progress Note Date: 03/19/21 HISTORY OF PRESENT ILLNESS: This is a 65-year-old male with a past medical history significant for hypertension and hyperlipidemia. 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 We have been asked to see the patient in consultation for A. fib with RVR. Patient examined at the bedside. Patient's is at the bedside and provides additional history. Patient's states they were leaving a urology appointment when her seem to be exhibiting strokelike symptoms according to her. She states the patient had slurred speech and was confused. She also reports he was argumentative which is unlike him. She brought him to the hospital for further evaluation. Patient was found to be febrile and tachycardic. Patient was found to have a urinary tract infection and his blood cultures are positive for E. coli. Patient went into A. fib with RVR. Patient denies a history of atrial fibrillation. At the time of my examination, patient remains in atrial fibrillation with a heart rate in the 110-120s. Cardizem drip is infusing at 5 mg an hour. He denies chest pain or pressure. He denies shortness of breath. He does report having some palpitations earlier this mo rning. Patient's also reports that the patient is supposed to have a TURP with Dr. Yee in the near future. EKG reveals A. fib with RVR Chest xray negative for acute process Laboratory data: WBC 7.9. Hemoglobin 12.9. Platelet count 132. Sodium 138. Potassium 3.6. BUN 16. Creatinine 0.67. Current home cardiac medications include hydrochlorothiazide 12.5 mg daily, amlodipine 5 mg daily, losartan 59 g daily, and Lipitor 20 mg daily 03/19/2021 Patient examined this morning at the bedside. Patient's spouse is present. Patient denies chest pain or pressure. He denies shortness of breath. He denies palpitations. Patient remains in atrial fibrillation with controlled ventricular rate. Cardizem drip is infusing at 5 mg an hour. TSH is normal at 2.08. Patient remains on IV heparin. Echocardiogram completed this morning and results are currently pending. PHYSICAL EXAM: VITAL SIGNS: Reviewed. GENERAL: Well-developed in no acute distress. HEENT: Head is normocephalic. Pupils are equal, round. Sclerae anicteric. Mucous membranes of the mouth are moist. Neck supple. No JVD or thyromegaly LUNGS: Respirations even and unlabored. Lungs essentially clear to auscultation bilaterally. HEART: Irregular rate and rhythm. S1 and S2 heard. ABDOMEN: Soft. Nondistended. Nontender. EXTREMITIES: Normal range of motion. No clubbing or cyanosis. Peripheral pulses intact. No lower extremity edema NEUROLOGIC: Awake and alert. Oriented x 3. ASSESSMENT: Urinary tract infection Sepsis New-onset atrial fibrillation with RVR Hypertension Hyperlipidemia PLAN: 2-D echo ordered. Await results Discontinue Cardizem drip Increase metoprolol to 50 mg twice a day Begin Eliquis 5 mg twice a day Further recommendations pending patient's course Nurse practitioner note has been reviewed by physician. Signing provider agrees with the documented findings, assessment, and plan of care. Objective - Vital Signs Vital signs: Vital Signs Temp 98.4 F 03/19/21 08:16 Pulse 94 03/19/21 08:16 Resp 18 03/19/21 08:16 BP 126/67 03/19/21 08:16 Pulse Ox 96 03/19/21 08:16 Intake & Output 03/18/21 03/19/21 03/19/21 18:59 06:59 18:59 Intake Total 793.855 256.996 585.518 Output Total 1225 1700 450 Balance -431.145 -1443.004 135.518 Weight 115.3 kg Intake: IV 240 .9 @ 20 240 Intake, IV Titration 73.855 256.996 165.518 Amount Diltiazem 125 mg In 125 5.667 Sodium Chloride 0.9% 100 ml @ 5 MG/HR 5 mls/hr IV .Q24H [facility] Rx#:[id number] Heparin Sod,Pork in 0.45% 73.855 131.996 109.851 NaCl 25,000 unit In 0.45 % NaCl 1 250ml.bag @ 8.79 UNITS/KG/HR 10.003 mls/ hr IV .Q24H [facility] Rx#: [id number] cefTRIAXone 2 gm In 50 Sodium Chloride 0.9% 50 ml @ 100 mls/hr IVPB Q24HR [facility] Rx#:[id number] Oral 720 180 Output: Urine 1225 1700 450 Coude 450 Other: Voiding Method Indwelling Catheter Indwelling Catheter Indwelling Catheter - Labs CBC & Chem 7: 03/19/21 08:55 03/19/21 08:55 Labs: Abnormal Lab Results - Last 24 Hours (Table) 03/18/21 03/19/21 03/19/21 Range/Units 21:41 08:55 08:55 Hgb 12.9 L (13.0-17.5) gm/dL Hct 38.9 L (39.0-53.0) % APTT 34.7 H 36.9 H (22.0-30.0) sec Potassium (3.5-5.1) mmol/L Glucose (74-99) mg/dL Calcium (8.4-10.2) mg/dL 03/19/21 Range/Units 08:55 Hgb (13.0-17.5) gm/dL Hct (39.0-53.0) % APTT (22.0-30.0) sec Potassium 3.2 L (3.5-5.1) mmol/L Glucose 134 H (74-99) mg/dL Calcium 8.3 L (8.4-10.2) mg/dL Microbiology - Last 24 Hours (Table) 03/17/21 18:04 Blood Culture - Preliminary Blood No Growth after 24 hours 03/15/21 17:20 Blood Culture Gram Stain - Final Blood Blood Culture - Final Escherichia coli 03/15/21 19:19 Blood Culture Gram Stain - Final Blood Blood Culture - Final Escherichia coli 03/15/21 15:23 Urine Culture - Final Urine,Voided Escherichia coli
--- NOTE | 2021-03-19 12:32 | ECHOF ---
Referral Reason:afib MEASUREMENTS -------- HEIGHT: 182.9 cm WEIGHT: 115.2 kg BP: RVIDd: 2.8 cm (< 3.3) IVSd: 1.0 cm (0.6 - 1.1) LVIDd: 4.5 cm (3.9 - 5.3) LVPWd: 1.1 cm (0.6 - 1.1) IVSs: 1.3 cm LVIDs: 3.1 cm LVPWs: 1.1 cm LAESV Index (A-L): 17.58 ml/m MV EXCURSION: 11.714 mm (> 18.000) MV EF SLOPE: 99 mm/s (70 - 150) EPSS: 0.3 cm RAP: 5.00 mmHg RVSP: 36.78 mmHg FINDINGS -------- Atrial fibrillation. This was a technically good study. The left ventricular size is normal. Left ventricular wall thickness is normal. Overall left vent ricular systolic function is low-normal with, an EF between 50 - 55 %. The right ventricle is normal in size. Normal LA size by volume 22+/-6 ml/m2. The right atrial size is normal. There is mild aortic valve sclerosis. There is no evidence of aortic regurgitation. Mild mitral regurgitation is present. Mild tricuspid regurgitation present. There is mild pulmonary hypertension. The right ventricular systolic pressure, as measured by Doppler, is 36.78mmHg. There is no pulmonic regurgitation present. Echo free space represents a pericardial fat pad. CONCLUSIONS -------- 1. The left ventricular size is normal. 2. Left ventricular wall thickness is normal. 3. Overall left ventricular systolic function is low-normal with, an EF between 50 - 55 %. 4. The right ventricle is normal in size. 5. Normal LA size by volume 22+/-6 ml/m2. 6. The right atrial size is normal. 7. There is mild aortic valve sclerosis. 8. Mild mitral regurgitation is present. 9. Mild tricuspid regurgitation present. 10. There is mild pulmonary hypertension. 11. The right ventricular systolic pressure, as measured by Doppler, is 36.78mmHg. 12. Echo free space represents a pericardial fat pad. SIGN PAINTER: Yakelin Metcalf RDCS
--- NOTE | 2021-03-19 13:12 | PN ---
PROGRESS NOTE DATE OF SERVICE: 03/19/2021 REASON FOR FOLLOWUP: E coli UTI and bacteremia. INTERVAL HISTORY: The patient is afebrile. The patient is feeling better, breathing comfortably. The patient denies having any chest pain, shortness of breath or cough. No vomiting. No abdominal pain or diarrhea. PHYSICAL EXAMINATION: Blood pressure 108/66, pulse of 113, temperature 97.6. He is 97% on room air. General description is an elderly male up in the room in no distress. RESPIRATORY SYSTEM: Unlabored breathing. Clear to auscultation anteriorly. HEART: S1, S2. Regular rate and rhythm. ABDOMEN: Soft. No tenderness. LABS: Repeat blood culture has been negative. White count normal at 9.4, creatinine 0.69. DIAGNOSTIC IMPRESSION AND PLAN: Patient with Escherichia coli urinary tract infection and bacteremia. Repeat blood culture has been negative with complicated UTI, sensitive pathogen. Patient is covered with Rocephin; to finish therapy with oral antibiotics. Continue supportive care. MMODL / IJN: [id number] /
--- NOTE | 2021-03-19 15:28 | P.PN ---
Subjective Progress Note Date: 03/19/21 I am seeing the patient for the first time for neurological management. Please refer to Dr. Rodrigues's note for further details. The patient is seen at bedside and feels he is doing well from neurological per spective. He denies of any headache, numbness, tingling, difficulty getting his words out, focal weakness or visual disturbance. Per the patient's nurse no neurological deficit on her exam as well. He is walking unassisted. Objective - Vital Signs Vital signs: Vital Signs Temp 97.6 F 03/19/21 11:20 Pulse 113 H 03/19/21 11:20 Resp 18 03/19/21 11:20 BP 108/66 03/19/21 11:20 Pulse Ox 97 03/19/21 11:20 Intake & Output 03/18/21 03/19/21 03/19/21 18:59 06:59 18:59 Intake Total 793.855 256.996 775.518 Output Total 1225 1700 450 Balance -431.145 -1443.004 325.518 Weight 115.3 kg Intake: IV 250 .9 @ 20 240 Invasive Line 2 10 Intake, IV Titration 73.855 256.996 165.518 Amount Diltiazem 125 mg In 125 5.667 Sodium Chloride 0.9% 100 ml @ 5 MG/HR 5 mls/hr IV .Q24H [facility] Rx#:[id number] Heparin Sod,Pork in 0.45% 73.855 131.996 109.851 NaCl 25,000 unit In 0.45 % NaCl 1 250ml.bag @ 8.79 UNITS/KG/HR 10.003 mls/ hr IV .Q24H [facility] Rx#: [id number] cefTRIAXone 2 gm In 50 Sodium Chloride 0.9% 50 ml @ 100 mls/hr IVPB Q24HR [facility] Rx#:[id number] Oral 720 360 Output: Urine 1225 1700 450 Coude 450 Other: Voiding Method Indwelling Catheter Indwelling Catheter Indwelling Catheter - Exam GENERAL: The patient is lying in bed and is not in acute distress. NEUROLOGICAL: Higher mental function: The patient is awake, alert, oriented to self, place and time. Patient is following commands. No aphasia and no neglect. Cranial nerves: The pupils are round, equal and reactive to light and accommodation. Visual frey are full to confrontation throughout. Extraocular movement is intact no nystagmus is noted. Facial sensation is normal to touch throughout. The facial strength is normal throughout. Hearing is normal bilaterally to hand rub. Tongue is midline and moved [id number] without any d ifficulty. No dysarthria is noted but has nasal tone. Shoulder shrug is normal bilaterally. Motor: The strength is 5 over 5 throughout. Normal tone and bulk. Cerebellum: Normal finger to nose bilaterally. Sensation: Sensation is normal to touch throughout.. SOME OF THE WORK-UP: CT scan of the brain was negative for acute hemorrhage and infarct. And the report is mentioned that there is a dilated superior ophthalmic veins, left greater than the right. The etiology is unclear. Consider in direct carotid cavernous fistula or venous pharynx. Neurosurgical referral for further evaluation such as with conventional angiography can be considered. CT angiography of the head and neck was reported as for the neck it is reported as very mild atherosclerotic change at the bifurcation. No hemodynamic significant the ICA stenosis on either side. While the CT angiography of the head is reported as focal moderate atherosclerotic stenosis distal cavernous segment r stenosis distal cavernous segment. Left ICA. Otherwise no large vessel intracranial arterial occlusion, significant stenosis or aneurysm changes seen. TSH is 2.080 Lipid panel is 59, cholesterol 82, LDL is 42 and HDL is 27 AST of 22 and ALT of 19 2-D echo was reported as atrial fibrillation. Left ventricular size is normal. Ejection fraction of 50-55%. Normal left atrial size by volume. Urinalysis is positive for urinary tract infection. BABAR-COV-2 PCR is not detected Influenza A and B is undetected RSV PCR was not detected - Labs CBC & Chem 7: 03/19/21 08:55 03/19/21 08:55 Labs: Abnormal Lab Results - Last 24 Hours (Table) 03/18/21 03/19/21 03/19/21 Range/Units 21:41 08:55 08:55 Hgb 12.9 L (13.0-17.5) gm/dL Hct 38.9 L (39.0-53.0) % APTT 34.7 H 36.9 H (22.0-30.0) sec Potassium (3.5-5.1) mmol/L Glucose (74-99) mg/dL Calcium (8.4-10.2) mg/dL 03/19/21 Range/Units 08:55 Hgb (13.0-17.5) gm/dL Hct (39.0-53.0) % APTT (22.0-30.0) sec Potassium 3.2 L (3.5-5.1) mmol/L Glucose 134 H (74-99) mg/dL Calcium 8.3 L (8.4-10.2) mg/dL Microbiology - Last 24 Hours (Table) 03/17/21 18:04 Blood Culture - Preliminary Blood No Growth after 24 hours 03/15/21 17:20 Blood Culture Gram Stain - Final Blood Blood Culture - Final Escherichia coli 03/15/21 19:19 Blood Culture Gram Stain - Final Blood Blood Culture - Final Escherichia coli Assessment and Plan Assessment: Mental status changes and weakness, likely secondary to bacteremia/urinary tract infection--mentation improved and is back to baseline Current neurological examination reveals no focal or lateralizing deficits Acute urinary tract infection New onset atrial fibrillation with RVR Hypertension Hyperlipidemia Plan: * The patient is on Eliquis 5 mg 1 tablet twice a day that was started by cardiology for atrial fibrillation. In addition the patient is also on aspirin 81 mg started by the primary team. I'll defer the use of anticoagulation as well as the aspirin to the cardiology and the primary team. On Lipitor 20 daily at bedtime * Regarding the reports on CT of the head of the dilated superior ophthalmic ve in left greater than the right: Recommend for the patient to follow-up with an ophthalmology team for further evaluation. This could be done as an outpatient. * Regarding the reported focal moderate atherosclerotic stenosis distal cavernous segment recommend for the patient to follow-up with neurologist as an outpatient possibly consider follow-up with endovascular team as an outpatient. Currently the patient is on aspirin and statin. * ID team is on board * Cardiology team is on board * We'll defer the rest of the medical management to the primary team * Upon discharge recommend the patient to follow-up with a neurologist within 2 weeks. The plan was discussed with the patient and his nurse. There is no further neurological workup needed. Neurology will sign off. Please reconsult if needed Time with Patient: Less than 30
--- NOTE | 2021-03-19 17:07 | P.PN ---
Subjective Progress Note Date: 03/19/21 This is a pleasant 65-year-old male who was recently admitted with acute urinary tract infection as well as possible stroke and also developed atrial fibrillation with RVR and being closely monitored. Patient has been evaluated by neurology and continued on aspirin and statin and recommending outpatient follow-up with ophthalmology along with neurology in the outpatient setting. Patient maintained on IV heparin and currently being transitioned to Eliquis and insurance coverage has been verified. 2-D echo was done showing overall left ventricular systolic function is low to normal with an EF of 50-55% with mild aortic valve sclerosis and no evidence of aortic regurgitation, mild mitral regurgitation and tricuspid regurgitation present along with mild home Douglas hypertension noted. Patient continues on IV ceftriaxone with infectious disease following closely and urine and blood cultures are finalized showing E. coli. Repeat blood cultures most recently thus far remain negative. Labs: White blood count is 9.5 and hemoglobin is 12.9, platelets are 156, sodium is 140 with a potassium of 3.2, current creatinine is 0.69 and BUN is 12 Review of systems: Constitutional: No reports of fatigue, fever, or chills Cardiovascular: No reports of chest pain or palpitations Respiratory: No reports of shortness of breath or cough GI: No reports of nausea, vomiting, or diarrhea : No reports of dysuria or retention, has indwelling Pierce catheter Neurovascular: Reports generalized weakness All medications have been reviewed Active Medications Acetaminophen (Acetaminophen Tab 325 Mg Tab) 650 mg PO Q4HR PRN PRN Reason: Mild Pain or Fever > 100.5 Last Admin: 03/19/21 15:56 Dose: 650 mg Documented by: Apixaban (Apixaban 5 Mg Tab) 5 mg PO BID [facility]; Protocol Last Admin: 03/19/21 11:17 Dose: 5 mg Documented by: Aspirin (Aspirin 81 Mg) 81 mg PO DAILY [facility] Last Admin: 03/19/21 07:57 Dose: 81 mg Documented by: Atorvastatin Calcium (Atorvastatin 20 Mg Tab) 20 mg PO HS [facility] Last Admin: 03/18/21 19:49 Dose: 20 mg Documented by: Hydrochlorothiazide (Hydrochlorothiazide 12.5 Mg Cap) 12.5 mg PO DAILY [facility] Last Admin: 03/19/21 07:57 Dose: 12.5 mg Documented by: Ceftriaxone Sodium 2 gm/ (Sodium Chloride) 50 mls @ 100 mls/hr IVPB Q24HR [facility] Last Admin: 03/19/21 07:57 Dose: 100 mls/hr Documented by: Losartan Potassium (Losartan 50 Mg Tab) 50 mg PO DAILY [facility] Last Admin: 03/19/21 07:57 Dose: 50 mg Documented by: Metoprolol Tartrate (Metoprolol Tartrate 50 Mg Tab) 50 mg PO BID [facility] Miscellaneous Information (Potassium Replacement Protocol 1 Each Misc) 1 each MISCELLANE DAILY PRN; Protocol PRN Reason: Per Protocol Ondansetron HCl (Ondansetron 4 Mg/2 Ml Vial) 4 mg IVP Q8HR PRN PRN Reason: Nausea And Vomiting Last Admin: 03/16/21 04:24 Dose: 4 mg Documented by: Oxybutynin Chloride (Oxybutynin Chloride 5 Mg Tab) 5 mg PO BID [facility] Last Admin: 03/19/21 07:58 Dose: 5 mg Documented by: Pantoprazole Sodium (Pantoprazole 40 Mg Tablet) 40 mg PO AC-BRKFST [facility] Last Admin: 03/19/21 05:48 Dose: 40 mg Documented by: Tamsulosin HCl (Tamsulosin 0.4 Mg Cap.Er.24h) 0.4 mg PO HS [facility] Last Admin: 03/18/21 19:49 Dose: 0.4 mg Documented by: Physical exam: Gen: This is a 65-year-old male sitting up in the chair awake, alert and oriented 3, well-developed, well-nourished. Temp is 98.4F, pulse is 94, respirations are 18, blood pressure is 126/67, oxygen saturation is 96% on room air HEENT: Head is atraumatic, normocephalic. Pupils equal, round. Sclerae is anicteric. NECK: Supple. No JVD. No lymphadenopathy. No thyromegaly. LUNGS: Diminished breath sounds bilaterally with no wheezing or rhonchi noted. No intercostal retractions. HEART: S1, S2 are muffled. Irregular ABDOMEN: Soft. Bowel sounds are present. No masses. No tenderness. EXTREMITIES: No pedal edema. No calf tenderness. Mild lower extremity edema n oted NEUROLOGICAL: Patient is awake, alert and oriented x3. No focal deficits with diffuse weakness. Assessment: Acute urinary tract infection with possible sepsis, present on admission with possible E. coli E. 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 Multiple medical consultations including neurology, infectious disease, cardiology following. Patient is new onset atrial fibrillation with RVR and was placed on Cardizem drip along with IV heparin and cardiology following. Urine and blood cultures have finalized showing E. coli and most recent repeat blood culture is negative. Will discuss with infectious disease about discharge antibiotics. Will also have PT/OT evaluate the patient. at the bedside with questions and concerns answered. Patient continues with indwelling Pierce catheter and noticing blood tinged urine which could be possibly secondary to trauma from multiple attempts of indwelling Pierce catheter placement along with heparin infusion. Will repeat a.m. labs and continue to monitor closely. Due to multiple complex medical issues, prognosis is guarded. Objective - Vital Signs Vital signs: Vital Signs Temp 97.3 F L 03/19/21 15:52 Pulse 96 03/19/21 15:52 Resp 18 03/19/21 15:52 BP 131/78 03/19/21 15:52 Pulse Ox 98 03/19/21 15:52 Intake & Output 03/18/21 03/19/21 03/19/21 18:59 06:59 18:59 Intake Total 793.855 422.951 1910.518 Output Total 1225 1700 1950 Balance -431.145 -1443.004 -574.482 Weight 115.3 kg Intake: IV 250 .9 @ 20 240 Invasive Line 2 10 Intake, IV Titration 73.855 256.996 165.518 Amount Diltiazem 125 mg In 125 5.667 Sodium Chloride 0.9% 100 ml @ 5 MG/HR 5 mls/hr IV .Q24H [facility] Rx#:[id number] Heparin Sod,Pork in 0.45% 73.855 131.996 109.851 NaCl 25,000 unit In 0.45 % NaCl 1 250ml.bag @ 8.79 UNITS/KG/HR 10.003 mls/ hr IV .Q24H [facility] Rx#: [id number] cefTRIAXone 2 gm In 50 Sodium Chloride 0.9% 50 ml @ 100 mls/hr IVPB Q24HR [facility] Rx#:[id number] Oral 720 960 Output: Urine 1225 1700 1950 Coude 1950 Other: Voiding Method Indwelling Catheter Indwelling Catheter Indwelling Catheter - Labs CBC & Chem 7: 03/19/21 08:55 03/19/21 08:55 Labs: Abnormal Lab Results - Last 24 Hours (Table) 03/18/21 03/19/21 03/19/21 Range/Units 21:41 08:55 08:55 Hgb 12.9 L (13.0-17.5) gm/dL Hct 38.9 L (39.0-53.0) % APTT 34.7 H 36.9 H (22.0-30.0) sec Potassium (3.5-5.1) mmol/L Glucose (74-99) mg/dL Calcium (8.4-10.2) mg/dL 03/19/21 Range/Units 08:55 Hgb (13.0-17.5) gm/dL Hct (39.0-53.0) % APTT (22.0-30.0) sec Potassium 3.2 L (3.5-5.1) mmol/L Glucose 134 H (74-99) mg/dL Calcium 8.3 L (8.4-10.2) mg/dL Microbiology - Last 24 Hours (Table) 03/17/21 18:04 Blood Culture - Preliminary Blood No Growth after 24 hours 03/15/21 17:20 Blood Culture Gram Stain - Final Blood Blood Culture - Final Escherichia coli 03/15/21 19:19 Blood Culture Gram Stain - Final Blood Blood Culture - Final Escherichia coli
[2021-03-19] MEDS ORDERED: SENNOSIDES 8.6 MG TAB PO PRN (19:52)
[2021-03-19] MEDS: ATORVASTATIN 20 MG TAB PO SCH (20:03)
[2021-03-19] MEDS: TAMSULOSIN 0.4 MG CAP.ER.24H PO SCH (20:03)
[2021-03-19] MEDS: METOPROLOL TARTRATE 50 MG TAB PO SCH (20:03)
[2021-03-20] MEDS: ACETAMINOPHEN TAB 325 MG TAB PO PRN ×2 (01:18→17:30)
[2021-03-20] MEDS: PANTOPRAZOLE 40 MG TABLET PO SCH (06:38)
[2021-03-20 07:36] LABS: HCT 35.7 % (39.0-53.0); HGB 12.1 gm/dL (13.0-17.5); MCH 28.9 pg (25.0-35.0); MCV 85.1 fL (80.0-100.0); Mean Platelet Volume 8.1; Platelet Count 178 k/uL (150-450); Poikilocytosis Slight; RDW 14.2 % (11.5-15.5); WBC 10.1 k/uL (3.8-10.6)
[2021-03-20 07:45] LABS: ALT 131 U/L (4-49); AST 118 U/L (17-59); African American GFR (CKD) >90 (>60 ml/min/1.73 sqM); Albumin 2.7 g/dL (3.5-5.0); Alkaline Phosphatase 81 U/L (38-126); Anion Gap 5 mmol/L; Blood Urea Nitrogen 12 mg/dL (9-20); Calcium 8.6 mg/dL (8.4-10.2); Carbon Dioxide 28 mmol/L (22-30); Chloride 106 mmol/L (98-107); Glucose 105 mg/dL (74-99); Magnesium 1.8 mg/dL (1.6-2.3); Non-African American GFR(CKD) >90 (>60 ml/min/1.73 sqM); Potassium 3.4 mmol/L (3.5-5.1); Sodium 139 mmol/L (137-145); Total Bilirubin 0.8 mg/dL (0.2-1.3); Total Protein 5.4 g/dL (6.3-8.2)
[2021-03-20] MEDS: OXYBUTYNIN CHLORIDE 5 MG TAB PO SCH ×2 (08:00→21:54)
[2021-03-20] MEDS: hydroCHLOROthiazide 12.5 MG CAP PO SCH (08:00)
[2021-03-20] MEDS: ASPIRIN 81 MG PO SCH (08:00)
[2021-03-20] MEDS: APIXABAN 5 MG TAB PO SCH ×2 (08:00→21:55)
[2021-03-20] MEDS: LOSARTAN 50 MG TAB PO SCH (08:04)
[2021-03-20] MEDS ORDERED: POTASSIUM CHLORIDE ER 20 MEQ TAB.ER PO STA (08:42)
[2021-03-20] MEDS: METOPROLOL TARTRATE 50 MG TAB PO SCH ×2 (08:47→21:54)
--- NOTE | 2021-03-20 13:47 | P.PN ---
Subjective Progress Note Date: 03/20/21 HISTORY OF PRESENT ILLNESS: This is a 65-year-old male with a past medical history significant for hypertension and hyperlipidemia. 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 We have been asked to see the patient in consultation for A. fib with RVR. Patient examined at the bedside. Patient's is at the bedside and provides additional history. Patient's states they were leaving a urology appointment when her seem to be exhibiting strokelike symptoms according to her. She states the patient had slurred speech and was confused. She also reports he was argumentative which is unlike him. She brought him to the hospital for further evaluation. Patient was found to be febrile and tachycardic. Patient was found to have a urinary tract infection and his blood cultures are positive for E. coli. Patient went into A. fib with RVR. Patient denies a history of atrial fibrillation. At the time of my examination, patient remains in atrial fibrillation with a heart rate in the 110-120s. Cardizem drip is infusing at 5 mg an hour. He denies chest pain or pressure. He denies shortness of breath. He does report having some palpitations earlier this mo rning. Patient's also reports that the patient is supposed to have a TURP with Dr. Yee in the near future. EKG reveals A. fib with RVR Chest xray negative for acute process Laboratory data: WBC 7.9. Hemoglobin 12.9. Platelet count 132. Sodium 138. Potassium 3.6. BUN 16. Creatinine 0.67. Current home cardiac medications include hydrochlorothiazide 12.5 mg daily, amlodipine 5 mg daily, losartan 59 g daily, and Lipitor 20 mg daily 03/19/2021 Patient examined this morning at the bedside. Patient's spouse is present. Patient denies chest pain or pressure. He denies shortness of breath. He denies palpitations. Patient remains in atrial fibrillation with controlled ventricular rate. Cardizem drip is infusing at 5 mg an hour. TSH is normal at 2.08. Patient remains on IV heparin. Echocardiogram completed this morning and results are currently pending. 03/20/2021 Issue examined this point bedside. Patient denies chest pain or pressure. He denies shortness of breath. Patient converted to sinus mechanism this morning. He has been started on anticoagulation the form of Eliquis. Echocardiogram performed reveals ejection fraction 50-55%, mild mitral regurgitation, mild tricuspid regurgitation, and mild pulmonary hypertension PHYSICAL EXAM: VITAL SIGNS: Reviewed. GENERAL: Well-developed in no acute distress. HEENT: Head is normocephalic. Pupils are equal, round. Sclerae anicteric. Mucous membranes of the mouth are moist. Neck supple. No JVD or thyromegaly LUNGS: Respirations even and unlabored. Lungs essentially clear to auscultation bilaterally. HEART: regular rate and rhythm. S1 and S2 heard. ABDOMEN: Soft. Nondistended. Nontender. EXTREMITIES: Normal range of motion. No clubbing or cyanosis. Peripheral pulses intact. No lower extremity edema NEUROLOGIC: Awake and alert. Oriented x 3. ASSESSMENT: Urinary tract infection Sepsis New-onset paroxysmal atrial fibrillation with RVR Hypertension Hyperlipidemia PLAN: Patient is currently stable from a cardiac perspective He may be discharged home today Patient to follow up outpatient with Dr. Israel on 03/28/2021 Nurse practitioner note has been reviewed by physician. Signing provider agrees with the documented findings, assessment, and plan of care. Objective - Vital Signs Vital signs: Vital Signs Temp 97.5 F L 03/20/21 08:10 Pulse 78 03/20/21 11:59 Resp 18 03/20/21 11:59 BP 142/78 03/20/21 11:59 Pulse Ox 96 03/20/21 11:59 Intake & Output 03/19/21 03/20/21 03/20/21 18:59 06:59 18:59 Intake Total 1555.518 20 480 Output Total 1950 700 950 Balance -394.482 -680 -470 Weight 118 kg Intake: IV 250 20 .9 @ 20 240 Invasive Line 2 10 20 Intake, IV Titration 165.518 Amount Diltiazem 125 mg In 5.667 Sodium Chloride 0.9% 100 ml @ 5 MG/HR 5 mls/hr IV .Q24H [facility] Rx#:[id number] Heparin Sod,Pork in 0.45% 109.851 NaCl 25,000 unit In 0.45 % NaCl 1 250ml.bag @ 8.79 UNITS/KG/HR 10.003 mls/ hr IV .Q24H [facility] Rx#: [id number] cefTRIAXone 2 gm In 50 Sodium Chloride 0.9% 50 ml @ 100 mls/hr IVPB Q24HR [facility] Rx#:[id number] Oral 1140 480 Output: Urine 1950 700 950 Coude 1950 950 Other: Voiding Method Indwelling Catheter Indwelling Catheter Indwelling Catheter # Bowel Movements 1 - Labs CBC & Chem 7: 03/20/21 06:54 03/20/21 06:54 Labs: Abnormal Lab Results - Last 24 Hours (Table) 03/20/21 03/20/21 Range/Units 06:54 06:54 RBC 4.20 L (4.30-5.90) m/uL Hgb 12.1 L (13.0-17.5) gm/dL Hct 35.7 L (39.0-53.0) % Potassium 3.4 L (3.5-5.1) mmol/L Glucose 105 H (74-99) mg/dL AST 118 H (17-59) U/L ALT 131 H (4-49) U/L Total Protein 5.4 L (6.3-8.2) g/dL Albumin 2.7 L (3.5-5.0) g/dL Microbiology - Last 24 Hours (Table) 03/17/21 18:04 Blood Culture - Preliminary Blood No Growth after 48 hours
--- NOTE | 2021-03-20 14:36 | PN ---
PROGRESS NOTE DATE OF SERVICE: 03/20/2021 REASON FOR FOLLOWUP: E coli UTI and bacteremia. INTERVAL HISTORY: Patient is afebrile. The patient is breathing comfortably. The patient denies having any chest pain, shortness of breath or cough. No nausea. No vomiting. No abdominal pain. No diarrhea. Overall feeling better. PHYSICAL EXAMINATION: Blood pressure 142/78, pulse of 78. Temperature 97.5. He is 93% on room air. General description is an elderly male up in the room in no distress. Respiratory system: Unlabored breathing, clear to auscultation anteriorly. Heart S1, S2. Regular rate and rhythm. Abdomen: Soft. No tenderness. LABS: Hemoglobin is 12.1, white count 10.1, creatinine 0.72. E. coli in the blood and urine sensitive pathogen. DIAGNOSTIC IMPRESSION AND PLAN: Patient with an E coli UTI and bacteremia. Repeat blood cultures have been negative. Patient has shown overall clinical improvement finishing therapy with oral Cipro for another 10 days to finish course of therapy and close outpatient followup. The patient and have questions. Those were answered in layman's terms. MMODL / IJN: [id number] /
--- NOTE | 2021-03-20 16:51 | P.PN ---
Subjective Progress Note Date: 03/20/21 This is a pleasant 65-year-old male who was recently admitted with acute urinary tract infection as well as possible stroke and also developed atrial fibrillation with RVR and being closely monitored. Patient has been evaluated by neurology and continued on aspirin and statin and recommending outpatient follow-up with ophthalmology along with neurology in the outpatient setting. Patient maintained on IV heparin and currently being transitioned to Eliquis and insurance coverage has been verified. 2-D echo was done showing overall left ventricular systolic function is low to normal with an EF of 50-55% with mild aortic valve sclerosis and no evidence of aortic regurgitation, mild mitral regurgitation and tricuspid regurgitation present along with mild home Douglas hypertension noted. Patient continues on IV ceftriaxone with infectious disease following closely and urine and blood cultures are finalized showing E. coli. Repeat blood cultures most recently thus far remain negative. 03/20/2021 Patient was seen and evaluated in follow-up this morning with at the bedside. Patient continues on IV ceftriaxone blood cultures and urine cultures finalized showing E. coli and most recent blood cultures remain negative for 48 hours. Infectious disease following closely and patient has also been evaluated by urology and will continue to follow-up in the outpatient setting. Patient is currently sinus rhythm and maintained on Eliquis and metoprolol rate control with cardiology following. Patient was able to get up and walk today although continues to be weak and will await PT/OT therapy notes. Discharge planning in process as patient would like to go home. Potassium at 3.4 and will replace per protocol. Labs: White blood count is 10.1 and hemoglobin is 12.1, platelets are 178, sodium is 139 with a potassium of 3.4, current creatinine is 0.72 and BUN is 12 Review of systems: Constitutional: No reports of fatigue, fever, or chills Cardiovascular: No reports of chest pain or palpitations Respiratory: No reports of shortness of breath or cough GI: No reports of nausea, vomiting, or diarrhea, reports to having a bowel movement today : No reports of dysuria or retention, has indwelling Pierce catheter Neurovascular: Reports generalized weakness All medications have been reviewed Active Medications Acetaminophen (Acetaminophen Tab 325 Mg Tab) 650 mg PO Q4HR PRN PRN Reason: Mild Pain or Fever > 100.5 Last Admin: 03/20/21 01:18 Dose: 650 mg Documented by: Apixaban (Apixaban 5 Mg Tab) 5 mg PO BID [facility]; Protocol Last Admin: 03/20/21 08:00 Dose: 5 mg Documented by: Aspirin (Aspirin 81 Mg) 81 mg PO DAILY [facility] Last Admin: 03/20/21 08:00 Dose: 81 mg Documented by: Atorvastatin Calcium (Atorvastatin 20 Mg Tab) 20 mg PO HS [facility] Last Admin: 03/19/21 20:03 Dose: 20 mg Documented by: Hydrochlorothiazide (Hydrochlorothiazide 12.5 Mg Cap) 12.5 mg PO DAILY [facility] Last Admin: 03/20/21 08:00 Dose: 12.5 mg Documented by: Ceftriaxone Sodium 2 gm/ (Sodium Chloride) 50 mls @ 100 mls/hr IVPB Q24HR [facility] Last Admin: 03/20/21 07:59 Dose: 100 mls/hr Documented by: Losartan Potassium (Losartan 50 Mg Tab) 50 mg PO DAILY [facility] Last Admin: 03/20/21 08:04 Dose: 50 mg Documented by: Metoprolol Tartrate (Metoprolol Tartrate 50 Mg Tab) 50 mg PO BID [facility] Last Admin: 03/20/21 08:47 Dose: 50 mg Documented by: Miscellaneous Information (Potassium Replacement Protocol 1 Each Misc) 1 each MISCELLANE DAILY PRN; Protocol PRN Reason: Per Protocol Ondansetron HCl (Ondansetron 4 Mg/2 Ml Vial) 4 mg IVP Q8HR PRN PRN Reason: Nausea And Vomiting Last Admin: 03/16/21 04:24 Dose: 4 mg Documented by: Oxybutynin Chloride (Oxybutynin Chloride 5 Mg Tab) 5 mg PO BID [facility] Last Admin: 03/20/21 08:00 Dose: 5 mg Documented by: Pantoprazole Sodium (Pantoprazole 40 Mg Tablet) 40 mg PO AC-BRKFST [facility] Last Admin: 03/20/21 06:38 Dose: 40 mg Documented by: Senna (Sennosides 8.6 Mg Tab) 8.6 mg PO BID PRN PRN Reason: Constipation Last Admin: 03/19/21 20:03 Dose: 8.6 mg Documented by: Tamsulosin HCl (Tamsulosin 0.4 Mg Cap.Er.24h) 0.4 mg PO [facility] Last Admin: 03/19/21 20:03 Dose: 0.4 mg Documented by: Physical exam: Gen: This is a 65-year-old male sitting up in the chair awake, alert and oriented 3, well-developed, well-nourished. Temp is 97.5F, pulse is 84, respirations are 18, blood pressure is 137/83, oxygen saturation is 96% on room air HEENT: Head is atraumatic, normocephalic. Pupils equal, round. Sclerae is anicteric. NECK: Supple. No JVD. No lymphadenopathy. No thyromegaly. LUNGS: Diminished breath sounds bilaterally with no wheezing or rhonchi noted. No intercostal retractions. HEART: S1, S2 are muffled. ABDOMEN: Soft. Bowel sounds are present. No masses. No tenderness. EXTREMITIES: No pedal edema. No calf tenderness. Mild lower extremity edema noted NEUROLOGICAL: Patient is awake, alert and oriented x3. No focal deficits. Assessment: Acute urinary tract infection with possible sepsis, present on admission with E. coli E. 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 Multiple medical consultations including neurology, infectious disease, cardiology following. Patient is new onset atrial fibrillation with RVR and was placed on Cardizem drip along with IV heparin and cardiology following. Patient has converted and is normal sinus with cardiology following closely and maintained on metoprolol and has been started on eliquis. IV heparin and Cardizem discontinued. Urine and blood cultures have finalized showing E. coli and most recent repeat blood culture is negative. Will discuss with infectious disease about discharge antibiotics. Patient was able to get up and work with physical therapy today and states he did well and will await report. at the bedside with questions and concerns answered. Patient continues with indwelling Pierce catheter. Will need close outpatient urology follow-up and normally follows with Dr. Yee at [facility]. Will repeat a.m. labs and continue to monitor closely. Due to multiple complex medical issues, prognosis is guarded. Possible discharge in 24 hours. Objective - Vital Signs Vital signs: Vital Signs Temp 97.5 F L 03/20/21 08:10 Pulse 78 03/20/21 11:59 Resp 18 03/20/21 11:59 BP 142/78 03/20/21 11:59 Pulse Ox 96 03/20/21 11:59 Intake & Output 03/19/21 03/20/21 03/20/21 18:59 06:59 18:59 Intake Total 1555.518 20 480 Output Total 6282 495 5412 Balance -394.482 -680 -870 Weight 118 kg Intake: IV 250 20 .9 @ 20 240 Invasive Line 2 10 20 Intake, IV Titration 165.518 Amount Diltiazem 125 mg In 5.667 Sodium Chloride 0.9% 100 ml @ 5 MG/HR 5 mls/hr IV .Q24H [facility] Rx#:[id number] Heparin Sod,Pork in 0.45% 109.851 NaCl 25,000 unit In 0.45 % NaCl 1 250ml.bag @ 8.79 UNITS/KG/HR 10.003 mls/ hr IV .Q24H [facility] Rx#: [id number] cefTRIAXone 2 gm In 50 Sodium Chloride 0.9% 50 ml @ 100 mls/hr IVPB Q24HR [facility] Rx#:[id number] Oral 1140 480 Output: Urine 2198 173 5959 Coude 1950 950 Other: Voiding Method Indwelling Catheter Indwelling Catheter Indwelling Catheter # Bowel Movements 1 - Labs CBC & Chem 7: 03/20/21 06:54 03/20/21 06:54 Labs: Abnormal Lab Results - Last 24 Hours (Table) 03/20/21 03/20/21 Range/Units 06:54 06:54 RBC 4.20 L (4.30-5.90) m/uL Hgb 12.1 L (13.0-17.5) gm/dL Hct 35.7 L (39.0-53.0) % Potassium 3.4 L (3.5-5.1) mmol/L Glucose 105 H (74-99) mg/dL AST 118 H (17-59) U/L ALT 131 H (4-49) U/L Total Protein 5.4 L (6.3-8.2) g/dL Albumin 2.7 L (3.5-5.0) g/dL Microbiology - Last 24 Hours (Table) 03/17/21 18:04 Blood Culture - Preliminary Blood No Growth after 48 hours
[2021-03-20] MEDS: TAMSULOSIN 0.4 MG CAP.ER.24H PO SCH (21:55)
[2021-03-20] MEDS: ATORVASTATIN 20 MG TAB PO SCH (21:55)
[2021-03-21] MEDS: ACETAMINOPHEN TAB 325 MG TAB PO PRN (01:41)
[2021-03-21] MEDS: PANTOPRAZOLE 40 MG TABLET PO SCH (06:14)
[2021-03-21] MEDS: APIXABAN 5 MG TAB PO SCH (10:06)
[2021-03-21] MEDS: LOSARTAN 50 MG TAB PO SCH (10:06)
[2021-03-21] MEDS: METOPROLOL TARTRATE 50 MG TAB PO SCH (10:06)
[2021-03-21] MEDS: OXYBUTYNIN CHLORIDE 5 MG TAB PO SCH (10:06)
[2021-03-21] MEDS: hydroCHLOROthiazide 12.5 MG CAP PO SCH (10:06)
[2021-03-21] MEDS: ASPIRIN 81 MG PO SCH (10:06)
[2021-03-21 10:14] VITALS: RESP 16
[2021-03-21 10:45] LABS: Basophils # (A) 0.1 k/uL (0-0.2); Basophils % (A) 1 %; Eosinophils # (A) 0.4 k/uL (0-0.7); Eosinophils % (A) 3 %; HCT 38.1 % (39.0-53.0); Lymphocytes # (A) 1.6 k/uL (1.0-4.8); Lymphocytes % (A) 13 %; MCHC 34.1 g/dL (31.0-37.0); MCV 85.3 fL (80.0-100.0); Mean Platelet Volume 7.7; Monocytes # (A) 0.8 k/uL (0-1.0); Monocytes % (A) 7 %; Neutrophils # (A) 8.9 k/uL (1.3-7.7); Neutrophils % (A) 74 %; Platelet Count 234 k/uL (150-450); Poikilocytosis Slight; RBC 4.47 m/uL (4.30-5.90); RDW 14.2 % (11.5-15.5); WBC 12.1 k/uL (3.8-10.6)
[2021-03-21 10:59] LABS: African American GFR (CKD) >90 (>60 ml/min/1.73 sqM); Anion Gap 7 mmol/L; Blood Urea Nitrogen 12 mg/dL (9-20); Calcium 8.8 mg/dL (8.4-10.2); Carbon Dioxide 28 mmol/L (22-30); Chloride 104 mmol/L (98-107); Glucose 109 mg/dL (74-99); Non-African American GFR(CKD) >90 (>60 ml/min/1.73 sqM); Sodium 139 mmol/L (137-145)
--- NOTE | 2021-03-21 11:30 | P.PN ---
Subjective Progress Note Date: 03/21/21 HISTORY OF PRESENT ILLNESS: This is a 65-year-old male with a past medical history significant for hypertension and hyperlipidemia. Patient does not follow with a director compensation. We have been asked to see the patient in consultation for A. fib with RVR. Patient examined at the bedside. Patient's is at the bedside and provides additional history. Patient's states they were leaving a urology appointment when her seem to be exhibiting strokelike symptoms according to her. She states the patient had slurred speech and was confused. She also reports he was argumentative which is unlike him. She brought him to the hospital for further evaluation. Patient was found to be febrile and tachycardic. Patient was found to have a urinary tract infection and his blood cultures are positive for E. coli. Patient went into A. fib with RVR. Patient denies a history of atrial fibrillation. At the time of my examination, patient remains in atrial fibrillation with a heart rate in the 110-120s. Cardizem drip is infusing at 5 mg an hour. He denies chest pain or pressure. He denies shortness of breath. He does report having some palpitations earlier this mo rning. Patient's also reports that the patient is supposed to have a TURP with Dr. Yee in the near future. EKG reveals A. fib with RVR Chest xray negative for acute process Laboratory data: WBC 7.9. Hemoglobin 12.9. Platelet count 132. Sodium 138. Potassium 3.6. BUN 16. Creatinine 0.67. Current home cardiac medications include hydrochlorothiazide 12.5 mg daily, amlodipine 5 mg daily, losartan 59 g daily, and Lipitor 20 mg daily 03/19/2021 Patient examined this morning at the bedside. Patient's spouse is present. Patient denies chest pain or pressure. He denies shortness of breath. He denies palpitations. Patient remains in atrial fibrillation with controlled ventricular rate. Cardizem drip is infusing at 5 mg an hour. TSH is normal at 2.08. Patient remains on IV heparin. Echocardiogram completed this morning and results are currently pending. 03/20/2021 Issue examined this point bedside. Patient denies chest pain or pressure. He denies shortness of breath. Patient converted to sinus mechanism this morning. He has been started on anticoagulation the form of Eliquis. Echocardiogram performed reveals ejection fraction 50-55%, mild mitral regurgitation, mild tricuspid regurgitation, and mild pulmonary hypertension 03/21/2021 Patient examined this morning at the bedside. He denies chest pain or pressure. Denies SOB. Telemetry reveals sinus mechanism. Vital signs stable. PHYSICAL EXAM: VITAL SIGNS: Reviewed. GENERAL: Well-developed in no acute distress. HEENT: Head is normocephalic. Pupils are equal, round. Sclerae anicteric. Mucous membranes of the mouth are moist. Neck supple. No JVD or thyromegaly LUNGS: Respirations even and unlabored. Lungs essentially clear to auscultation bilaterally. HEART: regular rate and rhythm. S1 and S2 heard. ABDOMEN: Soft. Nondistended. Nontender. EXTREMITIES: Normal range of motion. No clubbing or cyanosis. Peripheral pulses intact. No lower extremity edema NEUROLOGIC: Awake and alert. Oriented x 3. ASSESSMENT: Urinary tract infection Sepsis New-onset paroxysmal atrial fibrillation with RVR Hypertension Hyperlipidemia PLAN: Patient is currently stable from a cardiac perspective He may be discharged home today Patient to follow up outpatient with Dr. Israel Nurse practitioner note has been reviewed by physician. Signing provider agrees with the documented findings, assessment, and plan of care. Objective - Vital Signs Vital signs: Vital Signs Temp 98.8 F 03/21/21 08:17 Pulse 104 H 03/21/21 08:17 Resp 16 03/21/21 08:17 BP 136/85 03/21/21 08:17 Pulse Ox 95 03/21/21 08:17 Intake & Output 03/20/21 03/21/21 03/21/21 18:59 06:59 18:59 Intake Total 720 240 Output Total 1350 3160 Balance -630 -3160 240 Weight 114.5 kg Intake: Oral 720 240 Output: Urine 1350 3160 Coude 950 1900 Other: Voiding Method Indwelling Catheter Indwelling Catheter Indwelling Catheter # Bowel Movements 1 - Labs CBC & Chem 7: 03/21/21 10:29 03/21/21 10:29 Labs: Abnormal Lab Results - Last 24 Hours (Table) 03/21/21 03/21/21 Range/Units 10:29 10:29 WBC 12.1 H (3.8-10.6) k/uL Hct 38.1 L (39.0-53.0) % Neutrophils # 8.9 H (1.3-7.7) k/uL Glucose 109 H (74-99) mg/dL Microbiology - Last 24 Hours (Table) 03/17/21 18:04 Blood Culture - Preliminary Blood No Growth after 72 hours
[2021-03-21 13:04] VITALS: BP 145/86; PULSE 89; TEMP 98.3
--- NOTE | 2021-03-21 14:34 | PN ---
PROGRESS NOTE DATE OF SERVICE: 03/21/2021 REASON FOR FOLLOWUP: E coli UTI and bacteremia. INTERVAL HISTORY: The patient is afebrile. The patient is currently breathing comfortably. The patient denies having any chest pain, shortness of breath or cough. No abdominal pain or diarrhea. PHYSICAL EXAMINATION: Blood pressure is 145/83 with a pulse of 89, temperature 98.4. He is 95% on room air. General description is an elderly male up in the bed in no distress. RESPIRATORY SYSTEM: Unlabored breathing. Clear to auscultation anteriorly. HEART: S1, S2. Regular rate and rhythm. ABDOMEN: Soft. No tenderness. LABS: Repeat blood culture has been negative. DIAGNOSTIC IMPRESSION AND PLAN: Patient with Escherichia coli urinary tract infection and bacteremia. He has cleared his bacteremia. Continue for another days of oral Cipro and close outpatient followup. MMODL / ALANNAN: [id number] /
--- NOTE | 2021-03-21 16:41 | P.DS ---
Providers Date of admission: 03/15/21 18:49 Expected date of discharge: 03/21/21 Attending physician: Rupal Dwyer Consults: 03/15/21 18:17 Consult Physician Routine Consulting Provider: Sarthak Gustafson Consult Reason/Comments: urinary retention Do you want consulting provider notified?: Already Contacted 03/15/21 18:51 Consult Physician Routine Consulting Provider: Jenn Beal Consult Reason/Comments: code stroke Do you want consulting provider notified?: Yes Consult Physician Routine Consulting Provider: Janna Mckeon Consult Reason/Comments: SIRS Do you want consulting provider notified?: Yes 03/18/21 02:18 Consult Physician Routine Consulting Provider: Jackson Kathleen Consult Reason/Comments: NOS A-FIB RVR Do you want consulting provider notified?: Yes, Notify in am Primary care physician: [facility] Course: Final diagnosis Acute urinary tract infection with possible sepsis, present on admission with E. coli E. 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 Patient will follow-up with Dr. Agrawal in the outpatient setting upon discharge. Patient is to continue with oral Cipro 500 mg twice daily for the next 10 days and recommended close outpatient follow-up with his urologist, neurologist, infectious disease, and cardiology as scheduled. Patient will need ophthalmology follow-up for dilated superior ophthalmic veins as noted on CT. Resources provided. Total time taken is greater than 35 minutes. Hospital course This is a pleasant 65-year-old male who was recently admitted with acute urinary tract infection as well as possible stroke and also developed atrial fibrillation with RVR and being closely monitored. Patient has been evaluated by neurology and continued on aspirin and statin and recommending outpatient follow-up with ophthalmology along with neurology in the outpatient setting. Patient maintained on IV heparin and currently being transitioned to Eliquis and insurance coverage has been verified. 2-D echo was done showing overall left ventricular systolic function is low to normal with an EF of 50-55% with mild aortic valve sclerosis and no evidence of aortic regurgitation, mild mitral regurgitation and tricuspid regurgitation present along with mild home Douglas hypertension noted. Patient continues on IV ceftriaxone with infectious disease following closely and urine and blood cultures are finalized showing E. coli. Repeat blood cultures most recently thus far remain negative. 03/20/2021 Patient was seen and evaluated in follow-up this morning with at the bedside. Patient continues on IV ceftriaxone blood cultures and urine cultures finalized showing E. coli and most recent blood cultures remain negative for 48 hours. Infectious disease following closely and patient has also been evaluated by urology and will continue to follow-up in the outpatient setting. Patient is currently sinus rhythm and maintained on Eliquis and metoprolol rate control with cardiology following. Patient was able to get up and walk today although continues to be weak and will await PT/OT therapy notes. Discharge planning in process as patient would like to go home. Potassium at 3.4 and will replace per protocol. 03/21/2021 Patient is evaluated in follow-up this morning and has been up and walking. is at the bedside. Patient will continue with indwelling Pierce catheter and close outpatient follow-up with his urologist this week. Patient will also continue on anticoagulant in the form of Eliquis and metoprolol and will follow- up with cardiology in one week. Patient will continue on oral Cipro 500 mg twice daily for the next 10 days and close outpatient monitoring with infectious disease. Recommend repeat labs to monitor white blood count, electrolytes, and kidney functions closely. Patient is asking to go home. Currently no reports of chest pain, shortness of breath, or palpitations. Patient is afebrile. No reports of nausea or vomiting and patient is tolerating diet. Patient will be discharged home today. On exam vital signs are stable. Cardio S1, S2 are muffled. Respiratory system shows diminished breath sounds at the bases with no wheezing or rhonchi noted. Abdomen is soft and nontender. Nervous system shows no focal deficits. Please refer to medication reconciliation sheet for a list of medications. Patient Condition at Discharge: Stable Plan - Discharge Summary New Discharge Prescriptions: New Acetaminophen Tab [Tylenol] 650 mg PO Q4HR PRN tab PRN Reason: Mild Pain Or Fever > 100.5 Apixaban [Eliquis] 5 mg PO BID #60 tab Aspirin 81 mg PO DAILY 30 Days #30 tab Ciprofloxacin HCl [Cipro] 500 mg PO BID 10 Days #20 tab Metoprolol Tartrate [Lopressor] 50 mg PO BID 30 Days #60 tab Continue Tamsulosin [Flomax] 0.4 mg PO HS Fish Oil 2500mg 1 cap PO DAILY Losartan [Cozaar] 50 mg PO DAILY Atorvastatin [Lipitor] 20 mg PO HS Prevagen 1 cap PO DAILY Oxybutynin Chloride [Ditropan] 5 mg PO BID hydroCHLOROthiazide [Hydrodiuril] 12.5 mg PO DAILY Discontinued amLODIPine [Norvasc] 5 mg PO DAILY Nitrofurantoin Monohyd/M-Cryst [Macrobid] 100 mg PO BID Discharge Medication List Atorvastatin [Lipitor] 20 mg PO HS 03/15/21 [History] Fish Oil 2500mg 1 cap PO DAILY 03/15/21 [History] Losartan [Cozaar] 50 mg PO DAILY 03/15/21 [History] Oxybutynin Chloride [Ditropan] 5 mg PO BID 03/15/21 [History] Prevagen 1 cap PO DAILY 03/15/21 [History] Tamsulosin [Flomax] 0.4 mg PO HS 03/15/21 [History] hydroCHLOROthiazide [Hydrodiuril] 12.5 mg PO DAILY 03/15/21 [History] Apixaban [Eliquis] 5 mg PO BID #60 tab 03/19/21 [Rx] Acetaminophen Tab [Tylenol] 650 mg PO Q4HR PRN tab 03/21/21 [Rx] Aspirin 81 mg PO DAILY 30 Days #30 tab 03/21/21 [Rx] Ciprofloxacin HCl [Cipro] 500 mg PO BID 10 Days #20 tab 03/21/21 [Rx] Metoprolol Tartrate [Lopressor] 50 mg PO BID 30 Days #60 tab 03/21/21 [Rx] Follow up Appointment(s)/Referral(s): Sam Yee DO [REFERRING] - 04/14/21 (Tentatively planned TURP procedure April 14, 2021) Amarjit Buck MD [Medical Doctor] - 2 Weeks (Office Closed; please call to schedule followup appointment) David Pickens DO [Doctor of Osteopathic Medicine] - 1 Week (Please follow up at your convenience ) David Agrawal DO [Primary Care Provider] - 03/27/21 8:20 am ([facility] office Thursday) Janna Mckeon MD [STAFF PHYSICIAN] - 03/26/21 3:15 pm () Canelo Israel MD [STAFF PHYSICIAN] - 04/01/21 9:15 am () Ambulatory/Diagnostic Orders: Complete Blood Count w/diff [LAB.AMB] Time Frame: 2 Days, Location: None Selected Patient Instructions/Handouts: A-fib (Atrial Fibrillation) (DC), Urinary Tract Infection in Men (DC), Pierce Catheter Placement and Care (DC), Urinary Leg Bag (GEN), Safe Use of Anticoagulants (DC) Activity/Diet/Wound Care/Special Instructions: Eliquis covered with $45 copay; filled at [facility] cardiology follow up please inquire about clearance for TURP procedure, this includes stopping the ELIQUIS and baby ASPIRIN for one week. Please also remember to follow up with chiseler head r/t CT scan results Activity Limited until follow-up Monitor closely for fevers and/or decrease in mentation and decreasing urine output in the Pierce Follow-up with your urologist as discussed Continue heart healthy diet Take medications as prescribed Continue antibiotics twice daily for the next 10 days to complete the course elevate lower extremities while at rest Discharge Disposition: HOME SELF-CARE
== END 2021-03-21 15:06 | disposition home or self-care (01) | DRG 871 ==
LOC: SUPCPDRO 14:59 → EC 14:59 → 3SCARD 18:49
PROVIDERS: ADMIT Hospitalist; ATTEND Hospitalist
PROC: 0T9B80Z Drainage of Bladder with Drainage Device, Via Natural or Artificial Opening Endoscopic (ICD-10-PCS; principal; 2021-03-15)
DX: A41.51 Sepsis due to Escherichia coli [E. coli] (principal); I63.9 Cerebral infarction, unspecified; E87.1 Hypo-osmolality and hyponatremia; N13.8 Other obstructive and reflux uropathy; N39.0 Urinary tract infection, site not specified; R47.01 Aphasia; G81.94 Hemiplegia, unspecified affecting left nondominant side; I86.8 Varicose veins of other specified sites; I10 Essential (primary) hypertension; E78.00 Pure hypercholesterolemia, unspecified; R73.9 Hyperglycemia, unspecified; E78.5 Hyperlipidemia, unspecified; I08.3 Combined rheumatic disorders of mitral, aortic and tricuspid valves; I48.0 Paroxysmal atrial fibrillation; N40.1 Benign prostatic hyperplasia with lower urinary tract symptoms; N41.9 Inflammatory disease of prostate, unspecified; R29.703 NIHSS score 3; R33.8 Other retention of urine; R27.0 Ataxia, unspecified; Z20.822 Contact with and (suspected) exposure to COVID-19; Z79.01 Long term (current) use of anticoagulants; Z79.899 Other long term (current) drug therapy; Z80.0 Family history of malignant neoplasm of digestive organs; Z82.49 Family history of ischemic heart disease and other diseases of the circulatory system; Z87.440 Personal history of urinary (tract) infections; Z87.442 Personal history of urinary calculi
CPT/HCPCS: 36415; 70450; 70496; 70498; 71046; 74018; 80048; 80053; 80061; 81001; 83605; 83735; 84443; 84484; 85025; 85027; 85610; 85730; 87040; 87077; 87086; 87186; 87636; 93005; 93306; 94640; 96361; 96365; 96372; 99291